=== PATIENT | female | born 1970 | race American Indian/Alaskan Native ===

== ENCOUNTER 2017-08-24 08:03 | Emergency (ER) | payer MEDICARE, OTHER ==
--- NOTE | 2017-08-24 08:56 | XRay Report ---
Chest 2 views. History: Shortness of breath. Findings: The heart is enlarged and is stable compared to a study in May 2015. A bipolar pacemaker is present. The lungs are clear. There is no pleural fluid. The pulmonary vascularity is normal. Impression: Stable cardiomegaly with no acute findings.
[2017-08-24 09:01] LABS: Basophils % (Auto) 0.7 % (0.0-1.8); Eosinophils % (Auto) 1.1 % (0.0-4.3); Hematocrit 35.6 % (30.3-42.9); Hemoglobin 12.1 gm/dl (10.1-14.3); Mean Corpuscular HGB Conc 34 % (30-34); Mean Corpuscular Hemoglobin 33 pg (28-32); Mean Corpuscular Volume 97 fl (79-97); Platelet Count 198 K/mm3 (140-440); Red Blood Count 3.69 M/mm3 (3.65-5.03); Red Cell Distribution Width 15.4 % (13.2-15.2); White Blood Count 12.3 K/mm3 (4.5-11.0)
[2017-08-24 09:32] LABS: Anion Gap 20 mmol/L; BUN/Creatinine Ratio 19; Blood Urea Nitrogen 21 mg/dL (7-17); Calcium 9.1 mg/dL (8.4-10.2); Carbon Dioxide 24 mmol/L (22-30); Chloride 102.7 mmol/L (98-107); Glucose 165 mg/dL (65-100); Potassium 3.4 mmol/L (3.6-5.0); Sodium 143 mmol/L (137-145)
[2017-08-24 12:04] VITALS: BP 128/80
--- NOTE | 2017-08-24 13:06 | Emergency Department Report ---
ED Shortness of Breath HPI - General Chief Complaint: Dyspnea/Respdistress Stated Complaint: SHORTNESS OF BREATH Time Seen by Provider: 08/24/17 12:24 Source: patient Mode of arrival: Ambulatory Limitations: No Limitations - History of Present Illness Initial Comments: Patient said over the last few days she's been feeling short of breath. The shortness of breath is worse on exertion and also when she is lying down. Patient said she is also felt chills. She also has a cough which is productive of sputum. Patient said about 2 weeks ago she was told to stop her Lasix 40 mg daily by her kidney doctor. MD Complaint: shortness of breath -: Gradual Severity: moderate Consistency: intermittent Improves With: other (patient said she just took her Lasix and she is urinating a lot more and she is a lot more comfortable) Worsens With: nothing - Related Data Home Medications Medication Instructions Recorded Confirmed Last Taken Aspirin [Aspirin BABY CHEW TAB] 1 tab PO DAILY 08/24/17 08/24/17 Unknown Carvedilol [Coreg] 25 mg PO BID 08/24/17 08/24/17 08/23/17 21:00 25 MG Hydroxyzine HCl 10 mg PO Q6H PRN 08/24/17 08/24/17 Unknown Montelukast [Singulair] 10 mg PO DAILY 08/24/17 08/24/17 08/23/17 21:00 10 MG Ranitidine HCl [Zantac 300 MG TAB] 300 mg PO DAILY 08/24/17 08/24/17 08/23/17 21 :00 300 MG Simvastatin [Zocor] 10 mg PO QHS 08/24/17 08/24/17 08/23/17 21:00 10 MG Spironolactone [Aldactone] 25 mg PO QDAY 08/24/17 08/24/17 08/23/17 21:00 25 MG Torsemide [Demadex] 20 mg PO DAILY 08/24/17 08/24/17 08/23/17 21:00 20 MG hydrALAZINE [Apresoline TAB] 25 mg PO BID 08/24/17 08/24/17 08/23/17 21:00 25 MG Previous Rx's Medication Instructions Recorded Last Taken Type ALBUTEROL Inhaler [ProAir HFA 2 puff IH QID PRN #1 inhalation 08/24/17 Unknown Rx Inhaler] Allergies Allergy/AdvReac Type Severity Reaction Status Date / Time No Known Allergies Allergy Verified 05/14/15 02:29 ED Review of Systems ROS: Stated complaint: SHORTNESS OF BREATH Other details as noted in HPI Comment: All other systems reviewed and negative ED Past Medical Hx - Past Medical History Previous Medical History?: Yes Hx Hypertension: Yes Hx Congestive Heart Failure: Yes Hx Diabetes: Yes Hx GERD: Yes Hx Asthma: Yes Additional medical history: DEFRIBILLATOR - Surgical History Past Surgical History?: Yes Hx Internal Defibrillator: Yes Additional Surgical History: DEFRIBILLATOR - Social History Smoking Status: Current Every Day Smoker Substance Use Type: None - Medications Home Medications: Home Medications Medication Instructions Recorded Confirmed Last Taken Type ALBUTEROL Inhaler [ProAir HFA 2 puff IH QID PRN #1 inhalation 08/24/17 Unknown Rx Inhaler] Aspirin [Aspirin BABY CHEW TAB] 1 tab PO DAILY 08/24/17 08/24/17 Unknown History Carvedilol [Coreg] 25 mg PO BID 08/24/17 08/24/17 08/23/17 21:00 History 25 MG Hydroxyzine HCl 10 mg PO Q6H PRN 08/24/17 08/24/17 Unknown History Montelukast [Singulair] 10 mg PO DAILY 08/24/17 08/24/17 08/23/17 21:00 History 10 MG Ranitidine HCl [Zantac 300 MG TAB] 300 mg PO DAILY 08/24/17 08/24/17 08/23/17 21 :00 History 300 MG Simvastatin [Zocor] 10 mg PO QHS 08/24/17 08/24/17 08/23/17 21:00 History 10 MG Spironolactone [Aldactone] 25 mg PO QDAY 08/24/17 08/24/17 08/23/17 21:00 History 25 MG Torsemide [Demadex] 20 mg PO DAILY 08/24/17 08/24/17 08/23/17 21:00 History 20 MG hydrALAZINE [Apresoline TAB] 25 mg PO BID 08/24/17 08/24/17 08/23/17 21:00 History 25 MG ED Physical Exam - General Limitations: No Limitations General appearance: alert, in no apparent distress - Head Head exam: Present: atraumatic, normocephalic - Eye Eye exam: Present: normal appearance - ENT ENT exam: Present: mucous membranes moist - Neck Neck exam: Present: normal inspection - Respiratory Respiratory exam: Present: normal lung sounds bilaterally. Absent: respiratory distress - Cardiovascular Cardiovascular Exam: Present: regular rate, normal rhythm. Absent: systolic murmur, diastolic murmur, rubs, gallop - GI/Abdominal GI/Abdominal exam: Present: soft, distended (uniformly distended), normal bowel sounds - Rectal Rectal exam: Present: deferred - Extremities Exam Extremities exam: Present: normal inspection, pedal edema (1+ bilateral) - Back Exam Back exam: Present: normal inspection - Neurological Exam Neurological exam: Present: alert, oriented X3 - Psychiatric Psychiatric exam: Present: normal affect, normal mood - Skin Skin exam: Present: warm, dry, intact, normal color. Absent: rash ED Course Vital Signs 08/24/17 08/24/17 08/24/17 08:14 10:08 10:24 Temperature 98.1 F Pulse Rate 91 H 131 H 84 Respiratory 18 27 H 21 Rate Blood Pressure 125/78 Blood Pressure [Left] O2 Sat by Pulse 98 97 97 Oximetry 08/24/17 08/24/17 08/24/17 10:28 10:31 10:45 Temperature Pulse Rate 85 83 Respiratory 25 H 20 Rate Blood Pressure 111/75 Blood Pressure 138/74 [Left] O2 Sat by Pulse 99 98 Oximetry 08/24/17 08/24/17 08/24/17 11:00 11:15 11:31 Temperature Pulse Rate 85 86 84 Respiratory 25 H 25 H 23 Rate Blood Pressure 134/78 134/78 134/78 Blood Pressure [Left] O2 Sat by Pulse 98 99 98 Oximetry 08/24/17 08/24/17 11:47 12:00 Temperature Pulse Rate 82 Respiratory 28 H Rate Blood Pressure 134/78 128/80 Blood Pressure [Left] O2 Sat by Pulse 96 98 Oximetry ED Medical Decision Making - Lab Data Result diagrams: 08/24/17 08:55 08/24/17 08:52 - EKG Data -: EKG Interpreted by La - EKG Data 08/24/17 13:07 EKG shows a paced rhythm at a rate of 89 - Radiology Data Radiology results: report reviewed Critical care attestation.: If time is entered above; I have spent that time in minutes in the direct care of this critically ill patient, excluding procedure time. ED Disposition Clinical Impression: Acute bronchitis, Edema Disposition: DC-01 TO HOME OR SELFCARE Is pt being admited?: No Does the pt Need Aspirin: No Condition: Stable Instructions: Acute Bronchitis (ED) Additional Instructions: restart your torsemide and talk to your kidney doctor in 3 days about the fact it as been restarted Prescriptions: ALBUTEROL Inhaler [ProAir HFA Inhaler] 2 puff IH QID PRN #1 inhalation PRN Reason: Shortness Of Breath Referrals: TAMERA BARRON MD [Primary Care Provider] - 3-5 Days Time of Disposition: 13:10 Print Language: POLISH
== END 2017-08-24 13:25 | disposition home or self-care (01) ==
LOC: ED 08:03
DX: J20.9 Acute bronchitis, unspecified (principal); R60.9 Edema, unspecified; I10 Essential (primary) hypertension; K21.9 Gastro-esophageal reflux disease without esophagitis; J45.909 Unspecified asthma, uncomplicated; F17.200 Nicotine dependence, unspecified, uncomplicated
CPT/HCPCS: 36415; 71020; 80048; 83880; 84484; 85025

== ENCOUNTER 2019-07-27 21:04 | Inpatient (IN) | payer MEDICAID, MEDICARE ==
--- NOTE | 2019-07-27 21:28 | Emergency Department Report ---
Blank Doc - Documentation Documentation: 49-year-old female that presents with epigastric pain with SOB and bilateral leg swelling. This initial assessment/diagnostic orders/clinical plan/treatment(s) is/are subject to change based on patient's health status, clinical progression and re- assessment by fellow clinical providers in the ED. Further treatment and workup at subsequent clinical providers discretion. Patient/guardians urged not to elope from the ED as their condition may be serious if not clinically assessed and managed. Initial orders include: 1- Patient sent to [facility] for further evaluation and treatment 2- EKG 3- labs 4- CXR
[2019-07-27 21:49] LABS: Basophils # (Auto) 0.1 K/mm3 (0.0-0.1); Basophils % (Auto) 1.3 % (0.0-1.8); Eosinophils # (Auto) 0.1 K/mm3 (0.0-0.4); Eosinophils % (Auto) 1.1 % (0.0-4.3); Hematocrit 40.3 % (30.3-42.9); Hemoglobin 13.4 gm/dl (10.1-14.3); Lymphocytes # (Auto) 2.4 K/mm3 (1.2-5.4); Mean Corpuscular HGB Conc 33 % (30-34); Mean Corpuscular Volume 100 fl (79-97); Monocytes # (Auto) 0.8 K/mm3 (0.0-0.8); Monocytes % (Auto) 7.2 % (0.0-7.3); Platelet Count 200 K/mm3 (140-440); Red Blood Count 4.02 M/mm3 (3.65-5.03); Red Cell Distribution Width 16.4 % (13.2-15.2)
[2019-07-27 22:07] LABS: INR 1.25 (0.87-1.13); Partial Thromboplastin Time 27.5 Sec. (24.2-36.6)
[2019-07-27 22:12] LABS: Albumin 3.8 g/dL (3.9-5); Calcium 9.5 mg/dL (8.4-10.2)
--- NOTE | 2019-07-27 22:19 | XRay Report ---
CHEST 2 VIEWS INDICATION / CLINICAL INFORMATION: Chest pain. COMPARISON: 08/24/2017 FINDINGS: SUPPORT DEVICES: Cardiac pacemaker/ICD leads appear in appropriate position. HEART / MEDIASTINUM: Stable mild cardiomegaly. LUNGS / PLEURA: No significant pulmonary or pleural abnormality. No pneumothorax. ADDITIONAL FINDINGS: No significant additional findings. IMPRESSION: 1. No acute findings. Stable mild cardiomegaly compared with prior chest x-ray on 08/24/2017. Signer Name: Golden Root MD Signed: 07/27/2019 10:15 PM Workstation Name: [id number]
[2019-07-27] MEDS ORDERED: ONDANSETRON 4 MG/2 ML INJ IV ONE (23:16)
[2019-07-27] MEDS ORDERED: FAMOTIDINE 20 MG/2 ML INJ IV ONE (23:16)
[2019-07-27] MEDS ORDERED: HYDROmorphone 1 MG/1 ML INJ IV ONE (23:16)
--- NOTE | 2019-07-28 00:21 | Cat Scan Report ---
CT abdomen pelvis wo con INDICATION: upper abd pain, n,v. TECHNIQUE: All CT scans at this location are performed using the following dose modulation technique: Automated exposure control. CONTRAST: None. COMPARISON: CT abdomen and pelvis 01/24/2013. CT ABDOMEN: Nodular scarring left lung base is slightly more prominent. The parenchymal organs are unremarkable in appearance. Negative for abdominal mass, fluid or inflamma tion. The bowel is not dilated or thickened. CT PELVIS: Negative for mass, fluid or inflammation. A normal appendix is identified. IMPRESSION: 1. Negative for obstruction or localized inflammation. 2. Nodular scarring left lung base is mildly increased, but not thought to be significant given the t jessica interval. Signer Name: Jose Perez MD Signed: 07/28/2019 12:17 AM Workstation Name: [id number]
--- NOTE | 2019-07-28 00:32 | Emergency Department Report ---
ED Abdominal Pain HPI - General Chief Complaint: Dyspnea/Respdistress Stated Complaint: RENETTA Time Seen by Provider: 07/27/19 21:25 Source: patient Mode of arrival: Ambulatory Limitations: No Limitations - History of Present Illness Initial Comments: 49-year-old female with a past medical history of obesity, CHF, COPD, diabetes, GERD, hypertension, defibrillator placement and previous presents to the hospital complaining of right upper quadrant and epigastric abdominal pain with nausea and vomiting. Pain is intermittent, worse with palpation. Symptoms have gradually worsened that she's had 5 episodes of nonbloody vomitus today. Patient was just discharged 4 days ago from [facility] after a 4 day admission. Patient states she presented with flulike symptoms including cough, chills, and fever. She received IV Lasix and echocardiogram prior to d/c. She does not know her exact d/c diagnosis. Fever has improvement but she continues to have a cough. She also states she continues to have abdominal pain. Supervisor Hanging And Trimming: Dr Sue Severity scale (0 -10): 10 - Related Data Home Medications Medication Instructions Recorded Confirmed Last Taken Aspirin [Aspirin BABY CHEW TAB] 1 tab PO DAILY 08/24/17 07/28/19 Unknown Carvedilol [Coreg] 25 mg PO BID 08/24/17 07/28/19 08/23/17 21:00 25 MG Montelukast [Singulair] 10 mg PO DAILY 08/24/17 07/28/19 08/23/17 21:00 10 MG Simvastatin [Zocor] 10 mg PO QHS 08/24/17 07/28/19 08/23/17 21:00 10 MG Spironolactone [Aldactone] 25 mg PO QDAY 08/24/17 07/28/19 08/23/17 21:00 25 MG Torsemide [Demadex] 20 mg PO DAILY 08/24/17 07/28/19 08/23/17 21:00 20 MG hydrALAZINE [Apresoline TAB] 25 mg PO BID 08/24/17 07/28/19 08/23/17 21:00 25 MG hydrOXYzine HCl [Hydroxyzine HCl] 10 mg PO Q6H PRN 08/24/17 07/28/19 Unknown raNITIdine HCl [Zantac 300 MG TAB] 300 mg PO DAILY 08/24/17 07/28/19 08/23/17 21:00 300 MG Furosemide [Lasix TAB] 40 mg PO BID 07/28/19 07/28/19 Unknown Previous Rx's Medication Instructions Recorded Last Taken Type ALBUTEROL Inhaler (OR & NICU) 2 puff IH QID PRN #1 inhalation 08/24/17 Unknown Rx [ProAir HFA Inhaler] Allergies Allergy/AdvReac Type Severity Reaction Status Date / Time No Known Allergies Allergy Verified 05/14/15 02:29 ED Review of Systems ROS: Stated complaint: RENETTA Other details as noted in HPI Comment: All other systems reviewed and negative ED Past Medical Hx - Past Medical History Previous Medical History?: Yes Hx Hypertension: Yes Hx Congestive Heart Failure: Yes Hx Diabetes: Yes Hx GERD: Yes Hx Asthma: Yes Hx COPD: Yes Additional medical history: DEFRIBILLATOR. - Surgical History Past Surgical History?: Yes Hx Internal Defibrillator: Yes Additional Surgical History: DEFRIBILLATOR - Social History Smoking Status: Former Smoker Substance Use Type: None - Medications Home Medications: Home Medications Medication Instructions Recorded Confirmed Last Taken Type ALBUTEROL Inhaler (OR & NICU) 2 puff IH QID PRN #1 inhalation 08/24/17 07/28/19 Unknown Rx [ProAir HFA Inhaler] Aspirin [Aspirin BABY CHEW TAB] 1 tab PO DAILY 08/24/17 07/28/19 Unknown History Carvedilol [Coreg] 25 mg PO BID 08/24/17 07/28/19 08/23/17 21:00 History 25 MG Montelukast [Singulair] 10 mg PO DAILY 08/24/17 07/28/19 08/23/17 21:00 History 10 MG Simvastatin [Zocor] 10 mg PO QHS 08/24/17 07/28/19 08/23/17 21:00 History 10 MG Spironolactone [Aldactone] 25 mg PO QDAY 08/24/17 07/28/19 08/23/17 21:00 History 25 MG Torsemide [Demadex] 20 mg PO DAILY 08/24/17 07/28/19 08/23/17 21:00 History 20 MG hydrALAZINE [Apresoline TAB] 25 mg PO BID 08/24/17 07/28/19 08/23/17 21:00 History 25 MG hydrOXYzine HCl [Hydroxyzine HCl] 10 mg PO Q6H PRN 08/24/17 07/28/19 Unknown History raNITIdine HCl [Zantac 300 MG TAB] 300 mg PO DAILY 08/24/17 07/28/19 08/23/17 21:00 History 300 MG Furosemide [Lasix TAB] 40 mg PO BID 07/28/19 07/28/19 Unknown History ED Physical Exam - General Limitations: No Limitations - Other Other exam information: General: No acute distress Head: Atraumatic Eyes: normal appearance ENT: Moist mucous membranes Neck: Normal appearance, no midline tenderness Chest: Clear to auscultation bilaterally CV: Regular rate and rhythm Abdomen: Soft, normal bowel sounds, epigastric, right upper quadrant, and left upper quadrant tenderness, nondistended, no rebound or guarding Back: Normal inspection Extremity: Normal inspection infection, full range of motion Neuro: Alert O x 3, no facial asymmetry, speech clear, no gross motor sensory deficit Psych: Appropriate behavior Skin: No rash ED Course Vital Signs 07/27/19 07/27/19 07/27/19 21:10 21:26 23:02 Temperature 98.8 F 98.8 F Pulse Rate 105 H 106 H Respiratory 18 18 Rate Blood Pressure 142/98 142/98 O2 Sat by Pulse 98 100 94 Oximetry 07/27/19 07/27/19 07/27/19 23:15 23:35 23:45 Temperature Pulse Rate 99 H 94 H 97 H Respiratory 13 30 H Rate Blood Pressure 119/82 126/77 108/72 O2 Sat by Pulse 96 89 96 Oximetry 07/28/19 07/28/19 07/28/19 00:00 00:15 00:30 Temperature Pulse Rate 95 H 96 H 95 H Respiratory 12 18 17 Rate Blood Pressure 108/72 107/71 107/71 O2 Sat by Pulse 84 88 94 Oximetry 07/28/19 07/28/19 07/28/19 00:46 01:00 01:16 Temperature Pulse Rate 94 H 92 H 92 H Respiratory 17 15 15 Rate Blood Pressure 115/83 115/83 129/81 O2 Sat by Pulse 100 96 94 Oximetry 07/28/19 07/28/19 01:30 01:46 Temperature Pulse Rate 90 92 H Respiratory 14 16 Rate Blood Pressure 123/84 118/83 O2 Sat by Pulse 96 96 Oximetry - Reevaluation(s) Reevaluation #1: 07/28/19 01:26 I was informed pt desatted while supine during US. This is after dilaudid 0.5mg. it was reported that pt was drowsy but arousable. sat Improved with supplemental o2. States she is currently being worked up for sleep apnea and has had a recent outpatient sleep study test. 07/28/19 02:40 Despite initial meds patient continues to have intermittent pain and nausea. No further vomiting. She was nauseated after drinking water. Surgery with plan to discharge her symptoms improve and admit if they do not. Her room air saturation is between 86 and 89%. Patient will be admitted to the hospitalist service with surgical consultation. Pt then admitted to taking her own Benadryl 25 mg - Consultations Consultation #1: 07/28/19 02:39 case d/w DR Vasquez surgeon, if pt is admitted she will consult ED Medical Decision Making - Lab Data Result diagrams: 07/27/19 21:36 07/27/19 21:36 Lab Results 07/27/19 07/27/19 07/27/19 Range/Units 21:36 21:36 21:36 WBC 11.4 H (4.5-11.0) K/mm3 RBC 4.02 (3.65-5.03) M/mm3 Hgb 13.4 (10.1-14.3) gm/dl Hct 40.3 (30.3-42.9) % MCV 100 H (79-97) fl MCH 33 H (28-32) pg MCHC 33 (30-34) % RDW 16.4 H (13.2-15.2) % Plt Count 200 (140-440) K/mm3 Lymph % (Auto) 21.0 (13.4-35.0) % [place] % (Auto) 7.2 (0.0-7.3) % Eos % (Auto) 1.1 (0.0-4.3) % Baso % (Auto) 1.3 (0.0-1.8) % Lymph # 2.4 (1.2-5.4) K/mm3 [place] # 0.8 (0.0-0.8) K/mm3 Eos # 0.1 (0.0-0.4) K/mm3 Baso # 0.1 (0.0-0.1) K/mm3 Seg Neutrophils % 69.4 (40.0-70.0) % Seg Neutrophils # 7.9 H (1.8-7.7) K/mm3 PT 15.6 H (12.2-14.9) Sec. INR 1.25 H (0.87-1.13) APTT 27.5 (24.2-36.6) Sec. Sodium 137 (137-145) mmol/L Potassium 4.7 (3.6-5.0) mmol/L Chloride 101.3 (98-107) mmol/L Carbon Dioxide 21 L (22-30) mmol/L Anion Gap 19 mmol/L BUN 38 H (7-17) mg/dL Creatinine 1.7 H (0.7-1.2) mg/dL Estimated GFR 39 ml/min BUN/Creatinine Ratio 22 % Glucose 189 H (65-100) mg/dL Calcium 9.5 (8.4-10.2) mg/dL Total Bilirubin 0.80 (0.1-1.2) mg/dL AST 16 (5-40) units/L ALT 24 (7-56) units/L Alkaline Phosphatase 79 (35-129) units/L Troponin T 0.028 (0.00-0.029) ng/mL NT-Pro-B Natriuret Pep 2468 H (0-450) pg/mL Total Protein 6.9 (6.3-8.2) g/dL Albumin 3.8 L (3.9-5) g/dL Albumin/Globulin Ratio 1.2 % Lipase (13-60) units/L 07/27/19 07/28/19 Range/Units 21:36 00:40 WBC (4.5-11.0) K/mm3 RBC (3.65-5.03) M/mm3 Hgb (10.1-14.3) gm/dl Hct (30.3-42.9) % MCV (79-97) fl MCH (28-32) pg MCHC (30-34) % RDW (13.2-15.2) % Plt Count (140-440) K/mm3 Lymph % (Auto) (13.4-35.0) % [place] % (Auto) (0.0-7.3) % Eos % (Auto) (0.0-4.3) % Baso % (Auto) (0.0-1.8) % Lymph # (1.2-5.4) K/mm3 [place] # (0.0-0.8) K/mm3 Eos # (0.0-0.4) K/mm3 Baso # (0.0-0.1) K/mm3 Seg Neutrophils % (40.0-70.0) % Seg Neutrophils # (1.8-7.7) K/mm3 PT (12.2-14.9) Sec. INR (0.87-1.13) APTT (24.2-36.6) Sec. Sodium (137-145) mmol/L Potassium (3.6-5.0) mmol/L Chloride (98-107) mmol/L Carbon Dioxide (22-30) mmol/L Anion Gap mmol/L BUN (7-17) mg/dL Creatinine (0.7-1.2) mg/dL Estimated GFR ml/min BUN/Creatinine Ratio % Glucose (65-100) mg/dL Calcium (8.4-10.2) mg/dL Total Bilirubin (0.1-1.2) mg/dL AST (5-40) units/L ALT (7-56) units/L Alkaline Phosphatase (35-129) units/L Troponin T 0.021 (0.00-0.029) ng/mL NT-Pro-B Natriuret Pep (0-450) pg/mL Total Protein (6.3-8.2) g/dL Albumin (3.9-5) g/dL Albumin/Globulin Ratio % Lipase 31 (13-60) units/L - EKG Data -: EKG Interpreted by Me (a sensed, v paced rhythm, ) Rate: normal (91) - EKG Data When compared to previous EKG there are: no significant change - Radiology Data Radiology results: report reviewed CHEST 2 VIEWS INDICATION / CLINICAL INFORMATION: Chest pain. COMPARISON: 08/24/2017 FINDINGS: SUPPORT DEVICES: Cardiac pacemaker/ICD leads appear in appropriate position. HEART / MEDIASTINUM: Stable mild cardiomegaly. LUNGS / PLEURA: No significant pulmonary or pleural abnormality. No pneumothorax. ADDITIONAL FINDINGS: No significant additional findings. IMPRESSION: 1. No acute findings. Stable mild cardiomegaly compared with prior chest x-ray on 2016. CT abdomen pelvis wo con INDICATION: upper abd pain, n,v. TECHNIQUE: All CT scans at this location are performed using the following dose modulation technique: Automated exposure control. CONTRAST: None. COMPARISON: CT abdomen and pelvis 01/24/2013. CT ABDOMEN: Nodular scarring left lung base is slightly more prominent. The parenchymal organs are unremarkable in appearance. Negative for abdominal mass, fluid or inflammation. The bowel is not dilated or thic kened. CT PELVIS: Negative for mass, fluid or inflammation. A normal appendix is identified. IMPRESSION: 1. Negative for obstruction or localized inflammation. 2. Nodular scarring left lung base is mildly increased, but not thought to be significant given the time interval. ULTRASOUND ABDOMEN, COMPLETE INDICATION: upper abd pain, ruq jesús. COMPARISON: None available. FINDINGS: Pancreas: Normal. Abdominal Aorta: Normal. IVC: Normal. Liver: Normal. Gallbladder: Multiple gallstones. Bile ducts: Normal. Common Bile Duct measures 1 mm. Right Kidney: Mild vascular calcification. Left Kidney: Normal. Spleen: Normal. Free fluid: None. Additional Findings: None. IMPRESSION: Gallstones. Negative for biliary dilatation. - Medical Decision Making plan to admit for rebecca Back with continued pain and nausea despite ED treatment. Patient also noted to be hypoxic on room air after pain medications and O2 sat in the mid to high 80s even though she is awake and speaking. Patient will be admitted to the hospitalist service for further workup and evaluation. Surgical consult ordered. cardiology consult ordered - Differential Diagnosis pancreatitis, hepatitis, biliary colic Critical Care Time: No Critical care attestation.: If time is entered above; I have spent that time in minutes in the direct care of this critically ill patient, excluding procedure time. ED Disposition Clinical Impression: Biliary colic, Intractable pain, Nausea and vomiting, CHF (congestive heart failure), Hypoxia, Obesity, AICD (automatic cardioverter/defibrillator) present Disposition: DC-09 OP ADMIT IP TO THIS HOSP Is pt being admited?: Yes Condition: Stable Time of Disposition: 02:43 (Dr Sue/hosp)
--- NOTE | 2019-07-28 01:05 | Ultrasound Report ---
ULTRASOUND ABDOMEN, COMPLETE INDICATION: upper abd pain, ruq jesús. COMPARISON: None available. FINDINGS: Pancreas: Normal. Abdominal Aorta: Normal. IVC: Normal. Liver: Normal. Gallbladder: Multiple gallstones. Bile ducts: Normal. Common Bile Duct measures 1 mm. Right Kidney: Mild vascular calcification. Left Kidney: Normal. Spleen: Normal. Free fluid: None. Additional Findings: None. IMPRESSION: Gallstones. Negative for biliary dilatation. Signer Name: Jose Perez MD Signed: 07/28/2019 1:01 AM Workstation Name: [id number]
[2019-07-28] MEDS ORDERED: ONDANSETRON 4 MG/2 ML INJ IV ONE (02:30)
[2019-07-28] MEDS ORDERED: MORPHINE 4 MG/1 ML INJ IV ONE (02:30)
[2019-07-28] MEDS ORDERED: ACETAMINOPHEN 325 MG TAB PO PRN (04:13)
[2019-07-28] MEDS ORDERED: MAGNESIUM HYDROXIDE (MOM) ORAL LIQD UDC PO PRN (04:13)
[2019-07-28] MEDS ORDERED: DEXTROSE 50% IN WATER (25GM) 50 ML SYRINGE IV PRN (04:13)
--- NOTE | 2019-07-28 04:26 | History and Physical Report ---
History of Present Illness Date of examination: 07/28/19 Date of admission: 07/28/19 Chief complaint: Right upper quadrant abdominal pain Nausea and vomiting History of present illness: 39-year-old female with known history of morbid obesity, COPD, diabetes mellitus, GERD, hypertension and history of defibrillator placement presented to the emergency room today complaining of abdominal pain and associated nausea and vomiting. Abdominal pain is said to be crampy and has been intermittent over the past few days she indicates that she was admitted at [facility] about 4 days ago when she presented with some flulike symptoms including cough, chills fever. Indicates she was treated for symptoms but she has no known diagnosis. Fever seems to have subsided but she continues to have occasional cough. Abdominal pain is said to be more in the right upper abdomen and the epigastric region. There is no no relieving or exacerbating factor. Upon arrival in the emergency room and during evaluation she was found to be hypoxic with an O2 saturation of about 89%. Work-up in the emergency room including CT of the abdomen revealed gallstones without cholecystitis. General surgeon Dr. Vasquez has been consulted for evaluation. Past History Past Medical History: COPD, diabetes, GERD, heart failure, hypertension Past Surgical History: , Other (Defibrillator in place) Social history: smoking (Is a former smoker) Family history: diabetes, hypertension Medications and Allergies Allergies Allergy/AdvReac Type Severity Reaction Status Date / Time No Known Allergies Allergy Verified 05/14/15 02:29 Home Medications Medication Instructions Recorded Confirmed Last Taken Type ALBUTEROL Inhaler (OR & NICU) 2 puff IH QID PRN #1 inhalation 08/24/17 07/28/19 Unknown Rx [ProAir HFA Inhaler] Aspirin [Aspirin BABY CHEW TAB] 1 tab PO DAILY 08/24/17 07/28/19 Unknown History Carvedilol [Coreg] 25 mg PO BID 08/24/17 07/28/19 08/23/17 21:00 History 25 MG Montelukast [Singulair] 10 mg PO DAILY 08/24/17 07/28/19 08/23/17 21:00 History 10 MG Simvastatin [Zocor] 10 mg PO QHS 08/24/17 07/28/19 08/23/17 21:00 History 10 MG Spironolactone [Aldactone] 25 mg PO QDAY 08/24/17 07/28/19 08/23/17 21:00 History 25 MG Torsemide [Demadex] 20 mg PO DAILY 08/24/17 07/28/19 08/23/17 21:00 History 20 MG hydrALAZINE [Apresoline TAB] 25 mg PO BID 08/24/17 07/28/19 08/23/17 21:00 History 25 MG hydrOXYzine HCl [Hydroxyzine HCl] 10 mg PO Q6H PRN 08/24/17 07/28/19 Unknown History raNITIdine HCl [Zantac 300 MG TAB] 300 mg PO DAILY 08/24/17 07/28/19 08/23/17 21:00 History 300 MG Furosemide [Lasix TAB] 40 mg PO BID 07/28/19 07/28/19 Unknown History Active Meds: Active Medications Acetaminophen (Tylenol) 650 mg PO Q4H PRN PRN Reason: Pain MILD(1-3)/Fever >100.5/MARCELINO Dextrose (D50w (25gm) Syringe) 50 ml IV Q30MIN PRN; Protocol PRN Reason: Hypoglycemia Insulin Human Regular (Humulin R) 0 units SUB-Q ACHS SANDRO; Protocol Magnesium Hydroxide (Milk Of Magnesia) 30 ml PO Q4H PRN PRN Reason: Constipation Morphine Sulfate (Morphine) 2 mg IV Q4H PRN PRN Reason: Pain, Moderate (4-6) Ondansetron HCl (Zofran) 4 mg IV Q8H PRN PRN Reason: Nausea And Vomiting Sodium Chloride (Sodium Chloride Flush Syringe 10 Ml) 10 ml IV BID SANDRO Sodium Chloride (Sodium Chloride Flush Syringe 10 Ml) 10 ml IV PRN PRN PRN Reason: LINE FLUSH Review of Systems Constitutional: fever, chills Respiratory: cough Gastrointestinal: abdominal pain, nausea, vomiting Exam - Constitutional Vitals: Temp Pulse Resp BP Pulse Ox 98.8 F 87 17 127/84 99 07/27/19 21:26 07/28/19 04:00 07/28/19 04:00 07/28/19 04:00 07/28/19 04:00 General appearance: Present: no acute distress, mild distress, obese - EENT Eyes: Present: PERRL, EOM intact ENT: hearing intact, clear oral mucosa, dentition normal - Neck Neck: Present: supple, normal ROM - Respiratory Respiratory effort: normal Respiratory: bilateral: CTA - Cardiovascular Rhythm: regular Heart Sounds: Present: S1 & S2 - Extremities Extremities: no ischemia, pulses intact, pulses symmetrical, Full ROM Peripheral Pulses: within normal limits - Abdominal General gastrointestinal: Present: soft, tender (Mild tenderness in the right upper quadrant), normal bowel sounds - Integumentary Integumentary: Present: clear, warm, dry - Musculoskeletal Musculoskeletal: strength equal bilaterally - Psychiatric Psychiatric: appropriate mood/affect, intact judgment & insight, cooperative - Neurologic Neurologic: CNII-XII intact, moves all extremities Results - Labs CBC & Chem 7: 07/27/19 21:36 07/27/19 21:36 Labs: Abnormal lab results 07/27/19 07/27/19 07/27/19 Range/Units 21:36 21:36 21:36 WBC 11.4 H (4.5-11.0) K/mm3 MCV 100 H (79-97) fl MCH 33 H (28-32) pg RDW 16.4 H (13.2-15.2) % Seg Neutrophils # 7.9 H (1.8-7.7) K/mm3 PT 15.6 H (12.2-14.9) Sec. INR 1.25 H (0.87-1.13) Carbon Dioxide 21 L (22-30) mmol/L BUN 38 H (7-17) mg/dL Creatinine 1.7 H (0.7-1.2) mg/dL Glucose 189 H (65-100) mg/dL NT-Pro-B Natriuret Pep 2468 H (0-450) pg/mL Albumin 3.8 L (3.9-5) g/dL Assessment and Plan - Patient Problems (1) Biliary colic Current Visit: Yes Status: Acute Plan to address problem: Will place on analgesic medication as needed. Consult has been placed to general surgery for evaluation and recommendation. (2) CHF (congestive heart failure) Current Visit: Yes Status: Acute Plan to address problem: We will continue routine home medications monitor home input and outputs and also monitor daily weights (3) Hypoxia Current Visit: Yes Status: Acute Plan to address problem: Etiology is unclear probably secondary to history of CHF ,however patient has been placed on oxygen to keep O2 saturation greater or equal to 92% (4) Nausea and vomiting Current Visit: Yes Status: Acute Plan to address problem: We will place on IV Zofran as needed (5) Diabetes mellitus Current Visit: No Status: Acute Plan to address problem: We will monitor Accu-Cheks and continue routine home medications. (6) Hypertension Current Visit: No Status: Acute Plan to address problem: Blood pressure stable will monitor vital signs closely (7) DVT prophylaxis Current Visit: Yes Status: Acute Plan to address problem: Patient placed on subcutaneous heparin. (8) Full code status Current Visit: Yes Status: Acute
[2019-07-28] MEDS: HEPARIN 5,000 UNIT/1 ML VIAL SUB-Q SCH ×3 (06:57→22:47)
[2019-07-28] MEDS ORDERED: HEPARIN 5,000 UNIT/1 ML VIAL ONE (07:01)
[2019-07-28] MEDS: INSULIN REGULAR, HUMAN 100 UNITS/1 ML SUB-Q SCH ×3 (07:48→22:47)
[2019-07-28] MEDS: ONDANSETRON 4 MG/2 ML INJ IV PRN (08:23)
[2019-07-28] MEDS ORDERED: ONDANSETRON 4 MG/2 ML INJ ONE (08:24)
--- NOTE | 2019-07-28 10:05 | Consultation ---
History of Present Illness Consult date: 07/28/19 Reason for consult: gallstones Chief complaint: abdominal pain w/ nausea - History of present illness History of present illness: 49 year old female with a several day history of RUQ pain and intractable nausea and vomiting. She was recently treated at an OSH for 'flu-like' symptoms and was discharged less than a week ago. Besides the GI complaints she also complains of SOB and cough that did not improve after her recent admission. She says last night the pain was 10/10 and is currently 3/10 with improvement in the nausea as well. She was found to have gallstones on US and denies having the diagnosis prior to this admission. Past History Past Medical History: COPD, diabetes, GERD, heart failure, hypertension Past Surgical History: , Other (Defibrillator in place) Social history: smoking (Is a former smoker) Family history: diabetes, hypertension Medications and Allergies Allergies Allergy/AdvReac Type Severity Reaction Status Date / Time No Known Allergies Allergy Verified 05/14/15 02:29 Home Medications Medication Instructions Recorded Confirmed Last Taken Type ALBUTEROL Inhaler (OR & NICU) 2 puff IH QID PRN #1 inhalation 08/24/17 07/28/19 Unknown Rx [ProAir HFA Inhaler] Aspirin [Aspirin BABY CHEW TAB] 1 tab PO DAILY 08/24/17 07/28/19 Unknown History Carvedilol [Coreg] 25 mg PO BID 08/24/17 07/28/19 08/23/17 21:00 History 25 MG Montelukast [Singulair] 10 mg PO DAILY 08/24/17 07/28/19 08/23/17 21:00 History 10 MG Simvastatin [Zocor] 10 mg PO QHS 08/24/17 07/28/19 08/23/17 21:00 History 10 MG Spironolactone [Aldactone] 25 mg PO QDAY 08/24/17 07/28/19 08/23/17 21:00 History 25 MG Torsemide [Demadex] 20 mg PO DAILY 08/24/17 07/28/19 08/23/17 21:00 History 20 MG hydrALAZINE [Apresoline TAB] 25 mg PO BID 08/24/17 07/28/19 08/23/17 21:00 History 25 MG hydrOXYzine HCl [Hydroxyzine HCl] 10 mg PO Q6H PRN 08/24/17 07/28/19 Unknown History raNITIdine HCl [Zantac 300 MG TAB] 300 mg PO DAILY 08/24/17 07/28/19 08/23/17 21:00 History 300 MG Furosemide [Lasix TAB] 40 mg PO BID 07/28/19 07/28/19 Unknown History Active Meds: Active Medications Acetaminophen (Tylenol) 650 mg PO Q4H PRN PRN Reason: Pain MILD(1-3)/Fever >100.5/MARCELINO Dextrose (D50w (25gm) Syringe) 0 ml IV Q30MIN PRN; Protocol PRN Reason: Hypoglycemia Heparin Sodium (Porcine) (Heparin) 5,000 unit SUB-Q Q8HR SANDRO Last Admin: 07/28/19 06:57 Dose: 5,000 unit Documented by: Insulin Human Regular (Humulin R) 0 units SUB-Q ACHS SANDRO; Protocol Last Admin: 07/28/19 07:48 Dose: Not Given Documented by: Magnesium Hydroxide (Milk Of Magnesia) 30 ml PO Q4H PRN PRN Reason: Constipation Morphine Sulfate (Morphine) 2 mg IV Q4H PRN PRN Reason: Pain, Moderate (4-6) Ondansetron HCl (Zofran) 4 mg IV Q8H PRN PRN Reason: Nausea And Vomiting Last Admin: 07/28/19 08:23 Dose: 4 mg Documented by: Sodium Chloride (Sodium Chloride Flush Syringe 10 Ml) 10 ml IV BID SANDRO Sodium Chloride (Sodium Chloride Flush Syringe 10 Ml) 10 ml IV PRN PRN PRN Reason: LINE FLUSH Review of Systems - Cardiovascular no chest pain - Respiratory cough, dyspnea on exertion - Gastrointestinal abdominal pain, nausea, vomiting Exam Vital Signs Temp Pulse Resp BP Pulse Ox 98.8 F 105 H 18 142/98 98 07/27/19 21:10 07/27/19 21:10 07/27/19 21:10 07/27/19 21:10 07/27/19 21:10 - General physical appearance Positive: well developed, no distress, obese - Respiratory Positive: normal expansion, clear to percussion - Extremities Extremity abnormal: edema - Abdomen Abdomen: Present: other (obese, soft, tender to palpation in the RUQ and epigastric area. no rebound or guarding) Results - Labs 07/27/19 21:36 11/17/19 21:36 Abnormal lab results 07/27/19 07/27/19 07/27/19 Range/Units 21:36 21:36 21:36 WBC 11.4 H (4.5-11.0) K/mm3 MCV 100 H (79-97) fl MCH 33 H (28-32) pg RDW 16.4 H (13.2-15.2) % Seg Neutrophils # 7.9 H (1.8-7.7) K/mm3 PT 15.6 H (12.2-14.9) Sec. INR 1.25 H (0.87-1.13) Carbon Dioxide 21 L (22-30) mmol/L BUN 38 H (7-17) mg/dL Creatinine 1.7 H (0.7-1.2) mg/dL Glucose 189 H (65-100) mg/dL NT-Pro-B Natriuret Pep 2468 H (0-450) pg/mL Albumin 3.8 L (3.9-5) g/dL Diabetes panel 07/27/19 Range/Units 21:36 Sodium 137 (137-145) mmol/L Potassium 4.7 (3.6-5.0) mmol/L Chloride 101.3 (98-107) mmol/L Carbon Dioxide 21 L (22-30) mmol/L BUN 38 H (7-17) mg/dL Creatinine 1.7 H (0.7-1.2) mg/dL Glucose 189 H (65-100) mg/dL Calcium 9.5 (8.4-10.2) mg/dL AST 16 (5-40) units/L ALT 24 (7-56) units/L Alkaline Phosphatase 79 (35-129) units/L Total Protein 6.9 (6.3-8.2) g/dL Albumin 3.8 L (3.9-5) g/dL Calcium panel 07/27/19 Range/Units 21:36 Calcium 9.5 (8.4-10.2) mg/dL Albumin 3.8 L (3.9-5) g/dL Pituitary panel 07/27/19 Range/Units 21:36 Sodium 137 (137-145) mmol/L Potassium 4.7 (3.6-5.0) mmol/L Chloride 101.3 (98-107) mmol/L Carbon Dioxide 21 L (22-30) mmol/L BUN 38 H (7-17) mg/dL Creatinine 1.7 H (0.7-1.2) mg/dL Glucose 189 H (65-100) mg/dL Calcium 9.5 (8.4-10.2) mg/dL Adrenal panel 07/27/ Range/Units 21:36 Sodium 137 (137-145) mmol/L Potassium 4.7 (3.6-5.0) mmol/L Chloride 101.3 (98-107) mmol/L Carbon Dioxide 21 L (22-30) mmol/L BUN 38 H (7-17) mg/dL Creatinine 1.7 H (0.7-1.2) mg/dL Glucose 189 H (65-100) mg/dL Calcium 9.5 (8.4-10.2) mg/dL Total Bilirubin 0.80 (0.1-1.2) mg/dL AST 16 (5-40) units/L ALT 24 (7-56) units/L Alkaline Phosphatase 79 (35-129) units/L Total Protein 6.9 (6.3-8.2) g/dL Albumin 3.8 L (3.9-5) g/dL - Imaging CT scan - abdomen: report reviewed, image reviewed CT scan - pelvis: report reviewed, image reviewed Assessment and Plan 49 year old female with a history of diabetes, renal insufficiency, COPD with symptomatic cholelithiasis. afebrile stable. - acute on chronic CHF - w/ defibrillator - hypoxemia requiring oxygen 1. at this time surgery not emergent in nature. Will require cardiology and pulmonary clearances to determine risk factor for surgery. If determined to be high risk and could benefit from optimization would continue supportive care with pain/ nausea control, avoiding high fat foods. If can be determined to be a appropriate risk for elective surgery would plan for cholecystectomy this admission if patient agrees.
--- NOTE | 2019-07-28 10:44 | Consultation ---
History of Present Illness Consult date: 07/28/19 Consult reason: congestive heart failure History of present illness: This is a 49-year old morbidly obese woman that has a dilated nonischemic ca rdiomyopathy and has a cardiac defibrillator insitu. Patient presented with multiple complaints. Patient complains of shortness of breath, coughs, fever and chills. In addition, patient complains of abdominal pain associated with nausea and vomiting. A chest x-ray reports cardiomegaly with mild interstitial edema. Of note, patient was recently admitted to [facility] with similar complaints. Cardiac workup with an echocardiogram during that hospitalization reports a 4 chamber dilation, severe pulmonary hypertension and a severely decreased left ventricular systolic function, ejection fraction 10-15%. Past History Past Medical History: COPD, diabetes, GERD, heart failure, hypertension Past Surgical History: , Other (Defibrillator in place) Social history: smoking (Is a former smoker) Family history: diabetes, hypertension Medications and Allergies Allergies Allergy/AdvReac Type Severity Reaction Status Date / Time No Known Allergies Allergy Verified 05/14/15 02:29 Home Medications Medication Instructions Recorded Confirmed Last Taken Type ALBUTEROL Inhaler (OR & NICU) 2 puff IH QID PRN #1 inhalation 08/24/17 07/28/19 Unknown Rx [ProAir HFA Inhaler] Aspirin [Aspirin BABY CHEW TAB] 1 tab PO DAILY 08/24/17 07/28/19 Unknown History Carvedilol [Coreg] 25 mg PO BID 08/24/17 07/28/19 08/23/17 21:00 History 25 MG Montelukast [Singulair] 10 mg PO DAILY 08/24/17 07/28/19 08/23/17 21:00 History 10 MG Simvastatin [Zocor] 10 mg PO QHS 08/24/17 07/28/19 08/23/17 21:00 History 10 MG Spironolactone [Aldactone] 25 mg PO QDAY 08/24/17 07/28/19 08/23/17 21:00 History 25 MG Torsemide [Demadex] 20 mg PO DAILY 08/24/17 07/28/19 08/23/17 21:00 History 20 MG hydrALAZINE [Apresoline TAB] 25 mg PO BID 08/24/17 07/28/19 08/23/17 21:00 H istory 25 MG hydrOXYzine HCl [Hydroxyzine HCl] 10 mg PO Q6H PRN 08/24/17 07/28/19 Unknown Hi story raNITIdine HCl [Zantac 300 MG TAB] 300 mg PO DAILY 08/24/17 07/28/19 08/23/17 21:00 History 300 MG Furosemide [Lasix TAB] 40 mg PO BID 07/28/19 07/28/19 Unknown History Active Meds: Active Medications Acetaminophen (Tylenol) 650 mg PO Q4H PRN PRN Reason: Pain MILD(1-3)/Fever >100.5/MARCELINO Dextrose (D50w (25gm) Syringe) 0 ml IV Q30MIN PRN; Protocol PRN Reason: Hypoglycemia Heparin Sodium (Porcine) (Heparin) 5,000 unit SUB-Q Q8HR SANDRO Last Admin: 07/28/19 06:57 Dose: 5,000 unit Documented by: Insulin Human Regular (Humulin R) 0 units SUB-Q ACHS SANDRO; Protocol Last Admin: 07/28/19 07:48 Dose: Not Given Documented by: Magnesium Hydroxide (Milk Of Magnesia) 30 ml PO Q4H PRN PRN Reason: Constipation Morphine Sulfate (Morphine) 2 mg IV Q4H PRN PRN Reason: Pain, Moderate (4-6) Ondansetron HCl (Zofran) 4 mg IV Q8H PRN PRN Reason: Nausea And Vomiting Last Admin: 07/28/19 08:23 Dose: 4 mg Documented by: Sodium Chloride (Sodium Chloride Flush Syringe 10 Ml) 10 ml IV BID [facility] Sodium Chloride (Sodium Chloride Flush Syringe 10 Ml) 10 ml IV PRN PRN PRN Reason: LINE FLUSH Physical Examination Vital Signs Temp Pulse Resp BP Pulse Ox 98.8 F 105 H 18 142/98 98 07/27/19 21:10 07/27/19 21:10 07/27/19 21:10 07/27/19 21:10 07/27/19 21:10 General appearance: no acute distress HEENT: Positive: PERRL Neck: Positive: trachea midline Cardiac: Positive: Reg Rate and Rhythm Lungs: Positive: Decreased Breath Sounds Neuro: Positive: Grossly Intact Extremities: Absent: edema Results 07/27/19 21:36 07/27/19 21:36 Cardiac Enzymes 07/27/19 Range/Units 21:36 AST 16 (5-40) units/L Coagulation 07/27/19 Range/Units 21:36 PT 15.6 H (12.2-14.9) Sec. INR 1.25 H (0.87-1.13) APTT 27.5 (24.2-36.6) Sec. CBC 07/27/19 Range/Units 21:36 WBC 11.4 H (4.5-11.0) K/mm3 RBC 4.02 (3.65-5.03) M/mm3 Hgb 13.4 (10.1-14.3) gm/dl Hct 40.3 (30.3-42.9) % Plt Count 200 (140-440) K/mm3 Lymph # 2.4 (1.2-5.4) K/mm3 Rooks # 0.8 (0.0-0.8) K/mm3 Eos # 0.1 (0.0-0.4) K/mm3 Baso # 0.1 (0.0-0.1) K/mm3 Comprehensive Metabolic Panel 07/27/19 Range/Units 21:36 Sodium 137 (137-145) mmol/L Potassium 4.7 (3.6-5.0) mmol/L Chloride 101.3 (98-107) mmol/L Carbon Dioxide 21 L (22-30) mmol/L BUN 38 H (7-17) mg/dL Creatinine 1.7 H (0.7-1.2) mg/dL Glucose 189 H (65-100) mg/dL Calcium 9.5 (8.4-10.2) mg/dL AST 16 (5-40) units/L ALT 24 (7-56) units/L Alkaline Phosphatase 79 (35-129) units/L Total Protein 6.9 (6.3-8.2) g/dL Albumin 3.8 L (3.9-5) g/dL Assessment and Plan - Patient Problems (1) CHF (congestive heart failure) Current Visit: Yes Status: Acute
--- NOTE | 2019-07-28 12:21 | Consultation ---
History of Present Illness Consult date: 07/28/19 Requesting physician: EPDRO MCCARTNEY Reason for consult: COPD, other (surgical risk stratification) History of present illness: 49 y/o , obese female admitted with abdominal pain. Per chart, needs nonemergent cholecystectomy. Pulmonary has been asked for risk assessment. Per patient she was diagnosed with COPD by [facility] heart. She has never had breathing tests but sounds like recently she had an overnight pulse ox done. She also has never been tested for THANG. Per patient still smokes and has smoked for the last 30 years. She has never been hospitalized for breathing. 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 Currently on oxygen in bed. She does endorse occasional cough with wheeze. Past History Past Medical History: COPD, diabetes, GERD, heart failure, hypertension Past Surgical History: , Other (Defibrillator in place) Social history: smoking (Is a former smoker) Family history: diabetes, hypertension Medications and Allergies Allergies Allergy/AdvReac Type Severity Reaction Status Date / Time No Known Allergies Allergy Verified 05/14/15 02:29 Home Medications Medication Instructions Recorded Confirmed Last Taken Type ALBUTEROL Inhaler (OR & NICU) 2 puff IH QID PRN #1 inhalation 08/24/17 07/28/19 Unknown Rx [ProAir HFA Inhaler] Aspirin [Aspirin BABY CHEW TAB] 1 tab PO DAILY 08/24/17 07/28/19 Unknown History Carvedilol [Coreg] 25 mg PO BID 08/24/17 07/28/19 08/23/17 21:00 History 25 MG Montelukast [Singulair] 10 mg PO DAILY 08/24/17 07/28/19 08/23/17 21:00 History 10 MG Simvastatin [Zocor] 10 mg PO QHS 08/24/17 07/28/19 08/23/17 21:00 History 10 MG Spironolactone [Aldactone] 25 mg PO QDAY 08/24/17 07/28/19 08/23/17 21:00 History 25 MG Torsemide [Demadex] 20 mg PO DAILY 08/24/17 07/28/19 08/23/17 21:00 History 20 MG hydrALAZINE [Apresoline TAB] 25 mg PO BID 08/24/17 07/28/19 08/23/17 21:00 History 25 MG hydrOXYzine HCl [Hydroxyzine HCl] 10 mg PO Q6H PRN 08/24/17 07/28/19 Unknown History raNITIdine HCl [Zantac 300 MG TAB] 300 mg PO DAILY 08/24/17 07/28/19 08/23/17 21:00 History 300 MG Furosemide [Lasix TAB] 40 mg PO BID 07/28/19 07/28/19 Unknown History Active Meds: Active Medications Acetaminophen (Tylenol) 650 mg PO Q4H PRN PRN Reason: Pain MILD(1-3)/Fever >100.5/MARCELINO Carvedilol (Coreg) 3.125 mg PO BID [facility] Dextrose (D50w (25gm) Syringe) 0 ml IV Q30MIN PRN; Protocol PRN Reason: Hypoglycemia Furosemide (Lasix) 40 mg IV 0600,1800 [facility] Heparin Sodium (Porcine) (Heparin) 5,000 unit SUB-Q Q8HR [facility] Last Admin: 07/28/19 06:57 Dose: 5,000 unit Documented by: Hydralazine HCl (Apresoline) 25 mg PO Q8HR [facility] Milrinone Lactate/Dextrose (Milrinone-D5w 20 Mg/100 Ml) 20 mg in 100 mls @ 9.12 mls/hr IV TITR SANDRO Stop: 07/31/19 12:59 Insulin Human Regular (Humulin R) 0 units SUB-Q ACHS [facility]; Protocol Last Admin: 07/28/19 07:48 Dose: Not Given Documented by: Isosorbide Dinitrate (Isordil Titradose) 10 mg PO Q8HR [facility] Magnesium Hydroxide (Milk Of Magnesia) 30 ml PO Q4H PRN PRN Reason: Constipation Morphine Sulfate (Morphine) 2 mg IV Q4H PRN PRN Reason: Pain, Moderate (4-6) Ondansetron HCl (Zofran) 4 mg IV Q8H PRN PRN Reason: Nausea And Vomiting Last Admin: 07/28/19 08:23 Dose: 4 mg Documented by: Sodium Chloride (Sodium Chloride Flush Syringe 10 Ml) 10 ml IV BID [facility] Sodium Chloride (Sodium Chloride Flush Syringe 10 Ml) 10 ml IV PRN PRN PRN Reason: LINE FLUSH Spironolactone (Aldactone) 12.5 mg PO QDAY [facility] Review of Systems All systems: negative Physical Examination Vital signs: Vital Signs Temp Pulse Resp BP Pulse Ox 98.8 F 105 H 18 142/98 98 07/27/19 21:10 07/27/19 21:10 07/27/19 21:10 07/27/19 21:10 07/27/19 21:10 General appearance: no acute distress, alert, other (obese) Eyes: non-icteric ENT: oropharynx moist Neck: supple, no JVD Effort: normal Ascultation: Bilateral: clear, diminished breath sounds Percussion: Bilateral: not dull Tactile fremitus: Bilateral: normal Cardiovascular: regular rate and rhythm Extremities: no edema, pink and warm, pulses normal Results - Laboratory Findings CBC and BMP: 07/27/19 21:36 07/27/19 21:36 PT/INR, D-dimer PT 15.6 Sec. (12.2-14.9) H 07/27/19 21:36 INR 1.25 (0.87-1.13) H 07/27/19 21:36 Abnormal lab findings: Abnormal Labs 07/27/19 07/27/19 07/27/19 21:36 21:36 21:36 WBC 11.4 H MCV 100 H MCH 33 H RDW 16.4 H Seg Neutrophils # 7.9 H PT 15.6 H INR 1.25 H Carbon Dioxide 21 L BUN 38 H Creatinine 1.7 H Glucose 189 H NT-Pro-B Natriuret Pep 2468 H Albumin 3.8 L - Diagnostic Findings Chest x-ray: image reviewed (cardiomegaly but what appears to be normal lung dietrich.) Assessment and Plan 49 y/o, obese female smoker admitted with abdominal pain in need of cholecystectomy. 1. Limited history to work with. Patient has not been hospitalized for breathing. She is currently not in any kind of respiratory distress or being treated for the former. We did discuss the importance of smoking cessation. With lack of objective data, difficult to comment, especially in regards to COPD. The patient's ARISCAT score is 15 which is low risk of in-hospital post- op pulmonary complications. If the benefits outweigh the risk, then should proceed with surgery. Patient will need to follow up with us in our office for official screening for COPD and THANG. Concern for central sleep apnea given CAD. Post op would have PPV ready incase patient remains extremely groggy from anesthesia as she could be at risk for hypercapnea. Will continue to follow along with you. Thank you for this consult.
[2019-07-28] MEDS: MILRINONE-D5W 20 MG/100 ML 20 MG/100 ML BAG IV SCH ×2 (15:01→23:11)
[2019-07-28] MEDS: hydrALAZINE 25 MG TAB PO SCH ×2 (15:01→22:48)
--- NOTE | 2019-07-28 17:36 | Event Note ---
Date: 07/28/19 Patient seen and examined, still with mild shortness of breath but otherwise clinically stable, Discussed with surgeon, will obtain Cardiology, and pulmonary consult.
[2019-07-28] MEDS: ISOSORBIDE DINITRATE 10 MG TAB PO SCH ×2 (20:37→22:49)
[2019-07-28] MEDS: FUROSEMIDE 40 MG/4 ML INJ IV SCH (20:37)
[2019-07-28] MEDS: carvediloL 3.125 MG TAB PO SCH (22:48)
[2019-07-29] MEDS: HEPARIN 5,000 UNIT/1 ML VIAL SUB-Q SCH ×3 (05:58→22:19)
[2019-07-29] MEDS: hydrALAZINE 25 MG TAB PO SCH ×3 (06:01→23:14)
[2019-07-29] MEDS: FUROSEMIDE 40 MG/4 ML INJ IV SCH ×2 (06:02→17:38)
[2019-07-29] MEDS: ISOSORBIDE DINITRATE 10 MG TAB PO SCH ×3 (06:02→22:25)
[2019-07-29 07:40] LABS: INR 1.22 (0.87-1.13); Partial Thromboplastin Time 29.5 Sec. (24.2-36.6)
[2019-07-29 07:51] LABS: Basophils # (Auto) 0.1 K/mm3 (0.0-0.1); Basophils % (Auto) 0.7 % (0.0-1.8); Calcium 9.1 mg/dL (8.4-10.2); Eosinophils # (Auto) 0.2 K/mm3 (0.0-0.4); Hemoglobin 11.5 gm/dl (10.1-14.3); Lymphocytes # (Auto) 1.2 K/mm3 (1.2-5.4); Lymphocytes % (Auto) 11.3 % (13.4-35.0); Mean Corpuscular HGB Conc 33 % (30-34); Mean Corpuscular Volume 102 fl (79-97); Monocytes # (Auto) 0.9 K/mm3 (0.0-0.8); Monocytes % (Auto) 8.6 % (0.0-7.3); Platelet Count 186 K/mm3 (140-440); Red Blood Count 3.45 M/mm3 (3.65-5.03); Red Cell Distribution Width 16.3 % (13.2-15.2)
[2019-07-29] MEDS: SPIRONOLACTONE 25 MG TAB PO SCH (09:43)
[2019-07-29] MEDS: MILRINONE-D5W 20 MG/100 ML 20 MG/100 ML BAG IV SCH (09:43)
[2019-07-29] MEDS: carvediloL 3.125 MG TAB PO SCH ×2 (09:43→22:18)
--- NOTE | 2019-07-29 09:45 | Progress Note ---
Assessment and Plan Chronic systolic heart failure Cholelithiasis Dilated nonischemic cardiomyopathy left ventricular ejection fraction on echocardiogram was 10-15% at [facility] 2 weeks ago . Cardiac defibrillator in situ Noncompliant with medical therapy Obese Hypertension Recommendations: Daily weight. Fluid /sodium restriction. Continue medical therapy for chronic systolic heart failure including a trial of intravenous milrinone for heart failure exacerbation. Subjective Date of service: 07/29/19 Interval history: IV milrinone continues. Patient reports she is diuresing well. Objective Vital Signs Temp Pulse Pulse Resp BP Pulse Ox 07/29/19 08:29 95 H 07/29/19 07:47 98.3 F 95 H 18 104/64 97 07/29/19 06:02 96 H 99/58 07/29/19 06:01 96 H 99/58 07/29/19 04:43 98.4 F 07/29/19 04:41 96 H 18 99/58 96 07/28/19 23:20 98.4 F 07/28/19 23:19 97 H 18 99/60 93 07/28/19 22:49 98 H 94/56 07/28/19 22:48 98 H 94/56 07/28/19 22:05 98 H 18 100 07/28/19 20:45 98.4 F 07/28/19 20:42 98 H 20 94/56 100 07/28/19 19:33 99 H 07/28/19 15:55 98.2 F 18 100/63 07/28/19 09:55 90 118/80 98 - Physical Examination General: No Apparent Distress HEENT: Positive: PERRL Neck: Positive: trachea midline Cardiac: Positive: Other (paced) Lungs: Positive: Decreased Breath Sounds Neuro: Positive: Grossly Intact Extremities: Absent: edema - Labs and Meds Coagulation 07/29/19 Range/Units 06:43 PT 15.3 H (12.2-14.9) Sec. INR 1.22 H (0.87-1.13) APTT 29.5 (24.2-36.6) Sec. CBC 07/29/19 Range/Units 06:43 WBC 10.2 (4.5-11.0) K/mm3 RBC 3.45 L (3.65-5.03) M/mm3 Hgb 11.5 (10.1-14.3) gm/dl Hct 35.0 (30.3-42.9) % Plt Count 186 (140-440) K/mm3 Lymph # 1.2 (1.2-5.4) K/mm3 Love # 0.9 H (0.0-0.8) K/mm3 Eos # 0.2 (0.0-0.4) K/mm3 Baso # 0.1 (0.0-0.1) K/mm3 Comprehensive Metabolic Panel 07/29/19 Range/Units 06:43 Sodium 134 L (137-145) mmol/L Potassium 4.3 (3.6-5.0) mmol/L Chloride 98.7 (98-107) mmol/L Carbon Dioxide 22 (22-30) mmol/L BUN 40 H (7-17) mg/dL Creatinine 1.4 H (0.7-1.2) mg/dL Glucose 193 H (65-100) mg/dL Calcium 9.1 (8.4-10.2) mg/dL
[2019-07-29] MEDS: INSULIN REGULAR, HUMAN 100 UNITS/1 ML SUB-Q SCH ×4 (09:56→23:07)
--- NOTE | 2019-07-29 11:36 | Progress Note ---
Assessment and Plan 49 y/o, obese female smoker admitted with abdominal pain in need of cholecystectomy. No new recommendations for today. Same recs as below regarding surgical risk. 1. Limited history to work with. Patient has not been hospitalized for b reathing. She is currently not in any kind of respiratory distress or being treated for the former. We did discuss the importance of smoking cessation. With lack of objective data, difficult to comment, especially in regards to COPD. The patient's ARISCAT score is 15 which is low risk of in-hospital post- op pulmonary complications. If the benefits outweigh the risk, then should proceed with surgery. Patient will need to follow up with us in our office for official screening for COPD and THANG. Concern for central sleep apnea given CAD. Post op would have PPV ready incase patient remains extremely groggy from anesthesia as she could be at risk for hypercapnea. Will continue to follow a long with you. Thank you for this consult. Subjective Date of service: 07/29/19 Interval history: No acute events. On Milrinone now. Objective Vital Signs - 12hr 07/29/19 07/29/19 07/29/19 04:41 04:43 06:01 Temperature 98.4 F Pulse Rate 96 H 96 H Respiratory 18 Rate Blood Pressure 99/58 99/58 O2 Sat by Pulse 96 Oximetry 07/29/19 07/29/19 07/29/19 06:02 07:47 08:29 Temperature 98.3 F Pulse Rate 96 H 95 H 95 H Respiratory 18 Rate Blood Pressure 99/58 104/64 O2 Sat by Pulse 97 Oximetry 07/29/19 11:28 Temperature 98.7 F Pulse Rate 97 H Respiratory 18 Rate Blood Pressure 99/69 O2 Sat by Pulse 89 Oximetry Constitutional: no acute distress, alert, other (obese) Eyes: non-icteric ENT: oropharynx moist Neck: supple, no JVD Effort: normal Ascultation: Bilateral: clear, diminished breath sounds Percussion: Bilateral: not dull Tactile fremitus: Bilateral: normal Cardiovascular: regular rate and rhythm Extremities: no edema, pink and warm, pulses normal CBC and BMP: 07/29/19 06:43 07/30/19 08:49 ABG, PT/INR, D-dimer: PT/INR, D-dimer PT 15.3 Sec. (12.2-14.9) H 07/29/19 06:43 INR 1.22 (0.87-1.13) H 07/29/19 06:43 Abnormal lab findings: Abnormal Labs 07/27/19 07/27/19 07/27/19 21:36 21:36 21:36 WBC 11.4 H RBC MCV 100 H MCH 33 H RDW 16.4 H Lymph % (Auto) [place] % (Auto) [place] # Seg Neutrophils % Seg Neutrophils # 7.9 H PT 15.6 H INR 1.25 H Sodium Carbon Dioxide 21 L BUN 38 H Creatinine 1.7 H Glucose 189 H POC Glucose NT-Pro-B Natriuret Pep 2468 H Albumin 3.8 L 07/28/19 07/29/19 07/29/19 16:02 06:43 06:43 WBC RBC 3.45 L MCV 102 H MCH 33 H RDW 16.3 H Lymph % (Auto) 11.3 L [place] % (Auto) 8.6 H Davidson # 0.9 H Seg Neutrophils % 77.4 H Seg Neutrophils # 7.9 H PT 15.3 H INR 1.22 H Sodium Carbon Dioxide BUN Creatinine Glucose POC Glucose 315 H NT-Pro-B Natriuret Pep Albumin 07/29/19 06:43 WBC RBC MCV MCH RDW Lymph % (Auto) [place] % (Auto) [place] # Seg Neutrophils % Seg Neutrophils # PT INR Sodium 134 L Carbon Dioxide BUN 40 H Creatinine 1.4 H Glucose 193 H POC Glucose NT-Pro-B Natriuret Pep Albumin
--- NOTE | 2019-07-29 12:21 | Progress Note ---
Assessment and Plan Assessment and plan: Biliary colic, cholelithiasis Will place on analgesic medication as needed. Patient evaluated by Gen surgeon Acute on chronic systolic CHF We will continue routine home medications monitor home input and outputs and also monitor daily weights Acute resp failure due to CHF exacerbation Supplemental Oxygen Nausea and vomiting We will place on IV Zofran as needed Diabetes mellitus We will monitor Accu-Cheks and continue routine home medications. Hypertension Blood pressure stable will monitor vital signs closely DVT prophylaxis Patient placed on subcutaneous heparin. Full code status History Interval history: Abdominal pain shortness of breath No fever Hospitalist Physical - Physical exam Narrative exam: Gen: Not in acute distress, lying in bed, morbidly obese HEENT: Normocephalic, atraumatic Neck: supple, no JVD Heart: S1 and S2 reg, no murmurs, rubs or gallop Lungs: Clear to auscultation bilaterally, Abd: soft, tender RUQ, non distended, normal BS, Ext: No edema, no clubbing, no cyanosis Neuro: Awake, alert, oriented X 3, no focal neurological signs - Constitutional Vitals: Temp Pulse Resp BP Pulse Ox 98.7 F 97 H 18 99/69 89 07/29/19 11:28 07/29/19 11:28 07/29/19 11:28 07/29/19 11:28 07/29/19 11:28 General appearance: Present: no acute distress Results - Labs CBC & Chem 7: 07/29/19 06:43 07/29/19 06:43 Labs: Laboratory Last Values WBC 10.2 K/mm3 (4.5-11.0) 07/29/19 06:43 RBC 3.45 M/mm3 (3.65-5.03) L 07/29/19 06:43 Hgb 11.5 gm/dl (10.1-14.3) 07/29/19 06:43 Hct 35.0 % (30.3-42.9) 07/29/19 06:43 MCV 102 fl (79-97) H 07/29/19 06:43 MCH 33 pg (28-32) H 07/29/19 06:43 MCHC 33 % (30-34) 07/29/19 06:43 RDW 16.3 % (13.2-15.2) H 07/29/19 06:43 Plt Count 186 K/mm3 (140-440) 07/29/19 06:43 Lymph % (Auto) 11.3 % (13.4-35.0) L 07/29/19 06:43 [place] % (Auto) 8.6 % (0.0-7.3) H 07/29/19 06:43 Eos % (Auto) 2.0 % (0.0-4.3) 07/29/19 06:43 Baso % (Auto) 0.7 % (0.0-1.8) 07/29/19 06:43 Lymph # 1.2 K/mm3 (1.2-5.4) 07/29/19 06:43 [place] # 0.9 K/mm3 (0.0-0.8) H 07/29/19 06:43 Eos # 0.2 K/mm3 (0.0-0.4) 07/29/19 06:43 Baso # 0.1 K/mm3 (0.0-0.1) 07/29/19 06:43 Seg Neutrophils % 77.4 % (40.0-70.0) H 07/29/19 06:43 Seg Neutrophils # 7.9 K/mm3 (1.8-7.7) H 07/29/19 06:43 PT 15.3 Sec. (12.2-14.9) H 07/29/19 06:43 INR 1.22 (0.87-1.13) H 07/29/19 06:43 APTT 29.5 Sec. (24.2-36.6) 07/29/19 06:43 Sodium 134 mmol/L (137-145) L 07/29/19 06:43 Potassium 4.3 mmol/L (3.6-5.0) 07/29/19 06:43 Chloride 98.7 mmol/L (98-107) 07/29/19 06:43 Carbon Dioxide 22 mmol/L (22-30) 07/29/19 06:43 Anion Gap 18 mmol/L 07/29/19 06:43 BUN 40 mg/dL (7-17) H 07/29/19 06:43 Creatinine 1.4 mg/dL (0.7-1.2) H 07/29/19 06:43 Estimated GFR 48 ml/min 07/29/19 06:43 BUN/Creatinine Ratio 29 % 07/29/19 06:43 Glucose 193 mg/dL (65-100) H 07/29/19 06:43 POC Glucose 211 (70-105) H 07/29/19 11:35 Calcium 9.1 mg/dL (8.4-10.2) 07/29/19 06:43 Total Bilirubin 0.80 mg/dL (0.1-1.2) 07/27/19 21:36 AST 16 units/L (5-40) 07/27/19 21:36 ALT 24 units/L (7-56) 07/27/19 21:36 Alkaline Phosphatase 79 units/L (35-129) 07/27/19 21:36 Troponin T 0.021 ng/mL (0.00-0.029) 07/28/19 00:40 NT-Pro-B Natriuret Pep 2468 pg/mL (0-450) H 07/27/19 21:36 Total Protein 6.9 g/dL (6.3-8.2) 07/27/19 21:36 Albumin 3.8 g/dL (3.9-5) L 07/27/19 21:36 Albumin/Globulin Ratio 1.2 % 07/27/19 21:36 Lipase 31 units/L (13-60) 07/27/19 21:36 Active Medications - Current Medications Current Medications: Generic Name Dose Route Start Last Admin Trade Name Freq PRN Reason Stop Dose Admin Acetaminophen 650 mg 07/28/19 04:13 Tylenol PO Q4H PRN Pain MILD(1-3)/Fever >100.5/MARCELINO Carvedilol 3.125 mg 07/28/19 22:00 07/29/19 09:43 Coreg PO 3.125 mg BID SANDRO Administration Dextrose 0 ml 07/28/19 04:13 D50w (25gm) Syringe IV Q30MIN PRN Hypoglycemia Protocol Furosemide 40 mg 07/28/19 18:00 07/29/19 06:02 Lasix IV Not Given 0600,1800 SANDRO Heparin Sodium (Porcine) 5,000 unit 07/28/19 06:00 07/29/19 05:58 Heparin SUB-Q 5,000 unit Q8HR SANDRO Administration Hydralazine HCl 25 mg 07/28/19 14:00 07/29/19 06:01 Apresoline PO Not Given Q8HR [facility] Milrinone Lactate/Dextrose 20 mg in 100 mls @ 9.12 mls/hr 07/28/19 13:00 07/29/19 09:43 Milrinone-D5w 20 Mg/100 Ml IV 07/31/19 12:59 0.25 mcg/kg/min TITR SANDRO 9.12 mls/hr Administration 0.25 MCG/KG/MIN Insulin Human Regular 0 units 07/28/19 07:30 07/29/19 12:16 Humulin R SUB-Q 3 units ACHS [facility] Administration Protocol Isosorbide Dinitrate 10 mg 07/28/19 14:00 07/29/19 06:02 Isordil Titradose PO Not Given Q8HR [facility] Magnesium Hydroxide 30 ml 07/28/19 04:13 Milk Of Magnesia PO Q4H PRN Constipation Morphine Sulfate 2 mg 07/28/19 04:13 Morphine IV Q4H PRN Pain, Moderate (4-6) Nicotine 21 mg 07/29/19 13:00 Habitrol TD QDAY [facility] Ondansetron HCl 4 mg 07/28/19 04:13 07/28/19 08:23 Zofran IV 4 mg Q8H PRN Administration Nausea And Vomiting Sodium Chloride 10 ml 07/28/19 10:00 07/29/19 10:16 Sodium Chloride Flush Syringe 10 Ml IV 10 ml BID SANDRO Administration Sodium Chloride 10 ml 07/28/19 04:13 Sodium Chloride Flush Syringe 10 Ml IV PRN PRN LINE FLUSH Spironolactone 12.5 mg 07/29/19 10:00 07/29/19 09:43 Aldactone PO 12.5 mg QDAY [facility] Administration Nutrition/Malnutrition Assess - Dietary Evaluation Nutrition/Malnutrition Findings: Nutrition Notes Start: 07/28/19 13:20 Freq: Status: Active Protocol: Document 07/28/19 13:20 [place] (Rec: 07/28/19 13:35 OH [id number]) Nutrition Notes Need for Assessment generated from: MD Order Initial or Follow up Assessment Current Diagnosis Diabetes,Hypertension Other Pertinent Diagnosis CHF; GALLSTONES; BILIARY COLIC ; OBESITY Current Diet CARDIAC/CONSISTENT CHO Labs/Tests BUN 38 CR 1.7 ALB 3.8 Pertinent Medications HEPARIN LASIX HUMULIN R Height 5 ft 4 in Weight 121.6 kg [place] Body Weight (kg) 54.54 BMI 46.0 Intake Prior to Admission Poor Weight Status Morbidly Obese Subjective/Other Information MD CONSULT. Pt. sitting up in the bed. Pt. verbalized she had a f/u appointment w/PCP x2 weeks ago. Pt. indicates her appetite has steadily decreased since then. Pt. reports she has joined a gym but experienced SOB. Pt. eating out 3-5x/wk at [employer] etc. Pt. states she is consuming vegetables/salads but also fried foods quite often. MD did come in and discuss w/pt the importance of monitoring diet closer and limiting processed/packaged/eating out/ fried foods. Per pt she hasn't gone to a DM class per se but learned from her mother as she was a diabetic. Percent of energy/protein needs met: 75/75% Burn Absent Trauma Absent GI Symptoms None Food Allergy No Current % PO Fair (50-74%) Minimum of two criteria No physical signs of malnutrition #1 Nutrition Diagnosis Food and nutrition-related knowledge deficit Etiology inadequate DM education As Evidenced by Signs and Symptoms poor understanding of CHO types/maintaining BS wnl Is patient on ventilator? No Is Patient Ambulatory and/or Out of Bed Yes REE-([place]-St. Jeor-ambulatory/OOB) [ 2373.800 NUTR.MSJOOB] Kcal/Kg value to use for calculation 15 Approximate Energy Requirements Using 1824 kcal/Kg Calculation Used for Recommendations Kcal/kg Additional Notes PRO: .8-1.0 g/kg 44-55 g/ day FLUID: 1 ml/kcal Nutrition Intervention Change Diet Order: cont cardiac/consistent CHO Teaching Recipient Patient Learning Readiness Fair Teaching Methods Discussion,Demonstration, Handout Response to Teaching Verbalize understanding Education Handouts Provided Pt. educated on need to reduce fatty food consumption. Discussed w/pt fruit/vegetable /reduced na intake to benefit senior living health. Provided handout listing low na choices and encouraging nutrient dense foods. Enc pt to limit eating out/fried foods/ packaged items. Discussed hidden na foods. Rev high CHO food choices such as fruit. Educ pt on combining fruit ( those w/skin) in addition to PRO/FAT to better control blood sugar levels. Pt. verbalized understanding. Sugg choosing baked/grilled/ broiled options and increasing consumption of fish/bloom/ vegetarian PRO sources. Enc pt to be as active as possible to assist in improvement in control of DM and overall health. Barriers to Learning Motivation,Age related, Financial,Environmental,Social Revisit per MD consult or patient Sign Off request:
--- NOTE | 2019-07-29 12:37 | Progress Note ---
Assessment and Plan symptomatic cholelithiasis, afebrile, stable with acute on chronic CHF. Continue treatment per cardiology recommendations. Pt is a high risk surgical candidate with CHF and low EF. Urgent/emergent surgery is not indicated at this time. Would like to continue supportive management with nausea and pain control, avoid aggravating factors such as fatty foods. will start trial of actigal. If showing signs of clinical decline due to worsening cholecystitis, surgery will be more clinically warranted given her other serious health concerns. If her cardiac status optimized can also schedule electively. will continue to follow. Subjective Date of service: 07/29/19 Patient Reports: Positive: tolerating liquids well (pt says she was having less abdominal pain but is starting to have some abdominal pain this morning. less nausea, no vomiting). Negative: vomiting Objective Vital Signs - 12hr 07/29/19 07/29/19 07/29/19 04:41 04:43 06:01 Temperature 98.4 F Pulse Rate 96 H 96 H Respiratory 18 Rate Blood Pressure 99/58 99/58 O2 Sat by Pulse 96 Oximetry 07/29/19 07/29/19 07/29/19 06:02 07:47 08:29 Temperature 98.3 F Pulse Rate 96 H 95 H 95 H Respiratory 18 Rate Blood Pressure 99/58 104/64 O2 Sat by Pulse 97 Oximetry 07/29/19 11:28 Temperature 98.7 F Pulse Rate 97 H Respiratory 18 Rate Blood Pressure 99/69 O2 Sat by Pulse 89 Oximetry - General physical appearance well developed, well nourished, no distress, obese - Respiratory normal expansion, normal respiratory effort - Abdomen soft, other (obese, tender to deep palpation in the RUQ and epigastric area) - Labs 07/29/19 06:43 07/29/19 06:43 Diabetes panel 07/29/19 Range/Units 06:43 Sodium 134 L (137-145) mmol/L Potassium 4.3 (3.6-5.0) mmol/L Chloride 98.7 (98-107) mmol/L Carbon Dioxide 22 (22-30) mmol/L BUN 40 H (7-17) mg/dL Creatinine 1.4 H (0.7-1.2) mg/dL Glucose 193 H (65-100) mg/dL Calcium 9.1 (8.4-10.2) mg/dL Calcium panel 07/29/19 Range/Units 06:43 Calcium 9.1 (8.4-10.2) mg/dL Pituitary panel 07/29/19 Range/Units 06:43 Sodium 134 L (137-145) mmol/L Potassium 4.3 (3.6-5.0) mmol/L Chloride 98.7 (98-107) mmol/L Carbon Dioxide 22 (22-30) mmol/L BUN 40 H (7-17) mg/dL Creatinine 1.4 H (0.7-1.2) mg/dL Glucose 193 H (65-100) mg/dL Calcium 9.1 (8.4-10.2) mg/dL Adrenal panel 07/29/19 Range/Units 06:43 Sodium 134 L (137-145) mmol/L Potassium 4.3 (3.6-5.0) mmol/L Chloride 98.7 (98-107) mmol/L Carbon Dioxide 22 (22-30) mmol/L BUN 40 H (7-17) mg/dL Creatinine 1.4 H (0.7-1.2) mg/dL Glucose 193 H (65-100) mg/dL Calcium 9.1 (8.4-10.2) mg/dL
[2019-07-29] MEDS: NICOTINE 21 MG/24 HR PATCH TD SCH (14:15)
[2019-07-29] MEDS: URSODIOL 250 MG TAB PO SCH (17:38)
[2019-07-30] MEDS: MILRINONE-D5W 20 MG/100 ML 20 MG/100 ML BAG IV SCH ×2 (04:19→15:21)
[2019-07-30] MEDS: HEPARIN 5,000 UNIT/1 ML VIAL SUB-Q SCH ×3 (07:12→21:38)
[2019-07-30] MEDS: carvediloL 3.125 MG TAB PO SCH ×3 (08:46→21:38)
[2019-07-30] MEDS: INSULIN REGULAR, HUMAN 100 UNITS/1 ML SUB-Q SCH ×3 (08:47→21:40)
[2019-07-30] MEDS: URSODIOL 250 MG TAB PO SCH ×3 (10:17→18:39)
[2019-07-30] MEDS: SPIRONOLACTONE 25 MG TAB PO SCH (10:18)
[2019-07-30] MEDS: NICOTINE 21 MG/24 HR PATCH TD SCH (10:18)
[2019-07-30 10:23] LABS: Calcium 8.8 mg/dL (8.4-10.2)
--- NOTE | 2019-07-30 10:33 | Progress Note ---
Assessment and Plan Assessment and plan: Biliary colic, cholelithiasis Will place on analgesic medication as needed. Patient evaluated by Gen surgeon No urgent surgery planned. Discussed with Surgeon Surgery possibly as out patient when stable cardac patrick Acute on chronic systolic CHF Started on Milrinone drip till tomorrow 07/31 as per Cardiology Acute resp failure due to CHF exacerbation Supplemental Oxygen Nausea and vomiting On IV Zofran as needed Diabetes mellitus We will monitor Accu-Cheks and continue routine home medications. Hypertension Blood pressure stable will monitor vital signs closely DVT prophylaxis Patient placed on subcutaneous heparin. Full code status History Interval history: Less Abdominal pain shortness of breath No fever Hospitalist Physical - Physical exam Narrative exam: Gen: Not in acute distress, lying in bed, morbidly obese HEENT: Normocephalic, atraumatic Neck: supple, no JVD Heart: S1 and S2 reg, no murmurs, rubs or gallop Lungs: Bilateral basal crackles, Abd: soft, tender RUQ, non distended, normal BS, Ext: No edema, no clubbing, no cyanosis Neuro: Awake, alert, oriented X 3, no focal neurological signs - Constitutional Vitals: Temp Pulse Resp BP Pulse Ox 98.2 F 92 H 18 111/63 100 07/30/19 07:50 07/30/19 07:50 07/30/19 07:50 07/30/19 07:50 07/30/19 07:50 General appearance: Present: no acute distress Results - Labs CBC & Chem 7: 07/29/19 06:43 07/30/19 08:49 Labs: Laboratory Last Values WBC 10.2 K/mm3 (4.5-11.0) 07/29/19 06:43 RBC 3.45 M/mm3 (3.65-5.03) L 07/29/19 06:43 Hgb 11.5 gm/dl (10.1-14.3) 07/29/19 06:43 Hct 35.0 % (30.3-42.9) 07/29/19 06:43 MCV 102 fl (79-97) H 07/29/19 06:43 MCH 33 pg (28-32) H 07/29/19 06:43 MCHC 33 % (30-34) 07/29/19 06:43 RDW 16.3 % (13.2-15.2) H 07/29/19 06:43 Plt Count 186 K/mm3 (140-440) 07/29/19 06:43 Lymph % (Auto) 11.3 % (13.4-35.0) L 07/29/19 06:43 Richardson % (Auto) 8.6 % (0.0-7.3) H 07/29/19 06:43 Eos % (Auto) 2.0 % (0.0-4.3) 07/29/19 06:43 Baso % (Auto) 0.7 % (0.0-1.8) 07/29/19 06:43 Lymph # 1.2 K/mm3 (1.2-5.4) 07/29/19 06:43 Richardson # 0.9 K/mm3 (0.0-0.8) H 07/29/19 06:43 Eos # 0.2 K/mm3 (0.0-0.4) 07/29/19 06:43 Baso # 0.1 K/mm3 (0.0-0.1) 07/29/19 06:43 Seg Neutrophils % 77.4 % (40.0-70.0) H 07/29/19 06:43 Seg Neutrophils # 7.9 K/mm3 (1.8-7.7) H 07/29/19 06:43 PT 15.3 Sec. (12.2-14.9) H 07/29/19 06:43 INR 1.22 (0.87-1.13) H 07/29/19 06:43 APTT 29.5 Sec. (24.2-36.6) 07/29/19 06:43 Sodium 136 mmol/L (137-145) L 07/30/19 08:49 Potassium 4.4 mmol/L (3.6-5.0) 07/30/19 08:49 Chloride 99.5 mmol/L (98-107) 07/30/19 08:49 Carbon Dioxide 21 mmol/L (22-30) L 07/30/19 08:49 Anion Gap 20 mmol/L 07/30/19 08:49 BUN 35 mg/dL (7-17) H 07/30/19 08:49 Creatinine 1.2 mg/dL (0.7-1.2) 07/30/19 08:49 Estimated GFR 58 ml/min 07/30/19 08:49 BUN/Creatinine Ratio 29 % 07/30/19 08:49 Glucose 243 mg/dL (65-100) H 07/30/19 08:49 POC Glucose 233 (70-105) H 07/30/19 07:56 Calcium 8.8 mg/dL (8.4-10.2) 07/30/19 08:49 Magnesium 2.20 mg/dL (1.7-2.3) 07/30/19 08:49 Total Bilirubin 0.80 mg/dL (0.1-1.2) 07/27/19 21:36 AST 16 units/L (5-40) 07/27/19 21:36 ALT 24 units/L (7-56) 07/27/19 21:36 Alkaline Phosphatase 79 units/L (35-129) 07/27/19 21:36 Troponin T 0.021 ng/mL (0.00-0.029) 07/28/19 00:40 NT-Pro-B Natriuret Pep 2468 pg/mL (0-450) H 07/27/19 21:36 Total Protein 6.9 g/dL (6.3-8.2) 07/27/19 21:36 Albumin 3.8 g/dL (3.9-5) L 07/27/19 21:36 Albumin/Globulin Ratio 1.2 % 07/27/19 21:36 Lipase 31 units/L (13-60) 07/27/19 21:36 Active Medications - Current Medications Current Medications: Generic Name Dose Route Start Last Admin Trade Name Mattq PRN Reason Stop Dose Admin Acetaminophen 650 mg 07/28/19 04:13 Tylenol PO Q4H PRN Pain MILD(1-3)/Fever >100.5/MARCELINO Carvedilol 3.125 mg 07/28/19 22:00 07/30/19 10:17 Coreg PO Not Given BID SANDRO Dextrose 0 ml 07/28/19 04:13 D50w (25gm) Syringe IV Q30MIN PRN Hypoglycemia Protocol Furosemide 40 mg 07/28/19 18:00 07/29/19 17:38 Lasix IV 40 mg 0600,1800 SANDRO Administration Heparin Sodium (Porcine) 5,000 unit 07/28/19 06:00 07/30/19 07:12 Heparin SUB-Q 5,000 unit Q8HR SANDRO Administration Hydralazine HCl 25 mg 07/28/19 14:00 07/29/19 23:14 Apresoline PO Not Given Q8HR SANDRO Milrinone Lactate/Dextrose 20 mg in 100 mls @ 9.12 mls/hr 07/28/19 13:00 07/30/19 04:19 Milrinone-D5w 20 Mg/100 Ml IV 07/31/19 12:59 0.25 mcg/kg/min TITR SANDRO 9.12 mls/hr Administration 0.25 MCG/KG/MIN Insulin Human Regular 0 units 07/28/19 07:30 07/29/19 23:07 Humulin R SUB-Q 3 units ACHS SANDRO Administration Protocol Isosorbide Dinitrate 10 mg 07/28/19 14:00 07/29/19 22:25 Isordil Titradose PO Not Given Q8HR [facility] Magnesium Hydroxide 30 ml 07/28/19 04:13 07/29/19 22:19 Milk Of Magnesia PO 30 ml Q4H PRN Administration Constipation Morphine Sulfate 2 mg 07/28/19 04:13 Morphine IV Q4H PRN Pain, Moderate (4-6) Nicotine 21 mg 07/29/19 13:00 07/30/19 10:18 Habitrol TD 21 mg QDAY SANDRO Administration Ondansetron HCl 4 mg 07/28/19 04:13 07/28/19 08:23 Zofran IV 4 mg Q8H PRN Administration Nausea And Vomiting Sodium Chloride 10 ml 07/28/19 10:00 07/29/19 22:26 Sodium Chloride Flush Syringe 10 Ml IV 10 ml BID SANDRO Administration Sodium Chloride 10 ml 07/28/19 04:13 Sodium Chloride Flush Syringe 10 Ml IV PRN PRN LINE FLUSH Spironolactone 12.5 mg 07/29/19 10:00 07/30/19 10:18 Aldactone PO 12.5 mg QDAY SANDRO Administration Ursodiol 500 mg 07/29/19 17:00 07/30/19 10:17 Kaela PO 500 mg TIDDIAB SANDRO Administration Nutrition/Malnutrition Assess - Dietary Evaluation Nutrition/Malnutrition Findings: Nutrition Notes Start: 07/28/19 13:20 Freq: Status: Active Protocol: Document 07/28/19 13:20 OH (Rec: 07/28/19 13:35 OH [id number]) Nutrition Notes Need for Assessment generated from: MD Order Initial or Follow up Assessment Current Diagnosis Diabetes,Hypertension Other Pertinent Diagnosis CHF; GALLSTONES; BILIARY COLIC ; OBESITY Current Diet CARDIAC/CONSISTENT CHO Labs/Tests BUN 38 CR 1.7 ALB 3.8 Pertinent Medications HEPARIN LASIX HUMULIN R Height 5 ft 4 in Weight 121.6 kg [place] Body Weight (kg) 54.54 BMI 46.0 Intake Prior to Admission Poor Weight Status Morbidly Obese Subjective/Other Information MD CONSULT. Pt. sitting up in the bed. Pt. verbalized she had a f/u appointment w/PCP x2 weeks ago. Pt. indicates her appetite has steadily decreased since then. Pt. reports she has joined a gym but experienced SOB. Pt. eating out 3-5x/wk at [employer] etc. Pt. states she is consuming vegetables/salads but also fried foods quite often. MD did come in and discuss w/pt the importance of monitoring diet closer and limiting processed/packaged/eating out/ fried foods. Per pt she hasn't gone to a DM class per se but learned from her mother as she was a diabetic. Percent of energy/protein needs met: 75/75% Burn Absent Trauma Absent GI Symptoms None Food Allergy No Current % PO Fair (50-74%) Minimum of two criteria No physical signs of malnutrition #1 Nutrition Diagnosis Food and nutrition-related knowledge deficit Etiology inadequate DM education As Evidenced by Signs and Symptoms poor understanding of CHO types/maintaining BS wnl Is patient on ventilator? No Is Patient Ambulatory and/or Out of Bed Yes REE-([facility]-ambulatory/OOB) [ 2373.800 NUTR.[id number]] Kcal/Kg value to use for calculation 15 Approximate Energy Requirements Using 1824 kcal/Kg Calculation Used for Recommendations Kcal/kg Additional Notes PRO: .8-1.0 g/kg 44-55 g/ day FLUID: 1 ml/kcal Nutrition Intervention Change Diet Order: cont cardiac/consistent CHO Teaching Recipient Patient Learning Readiness Fair Teaching Methods Discussion,Demonstration, Handout Response to Teaching Verbalize understanding Education Handouts Provided Pt. educated on need to reduce fatty food consumption. Discussed w/pt fruit/vegetable /reduced na intake to benefit manager long term care health. Provided handout listing low na choices and encouraging nutrient dense foods. Enc pt to limit eating out/fried foods/ packaged items. Discussed hidden na foods. Rev high CHO food choices such as fruit. Educ pt on combining fruit ( those w/skin) in addition to PRO/FAT to better control blood sugar levels. Pt. verbalized understanding. Sugg choosing baked/grilled/ broiled options and increasing consumption of fish/bloom/ vegetarian PRO sources. Enc pt to be as active as possible to assist in improvement in control of DM and overall health. Barriers to Learning Motivation,Age related, Financial,Environmental,Social Revisit per MD consult or patient Sign Off request:
--- NOTE | 2019-07-30 10:45 | Progress Note ---
<DIGNA JAY - Last Filed: 07/30/19 10:43> Assessment and Plan Chronic systolic heart failure Cholelithiasis Dilated nonischemic cardiomyopathy left ventricular ejection fraction on echocardiogram was 10-15% at [facility] 2 weeks ago . Cardiac defibrillator in situ Noncompliant with medical therapy Obese Hypertension Recommendations: Daily weight. Fluid /sodium restriction. Continue medical therapy for chronic systolic heart failure including a trial of intravenous milrinone for an additional 24hrs. Subjective Date of service: 07/30/19 Interval history: IV milrinone continues. Patient has no complaints. Objective Vital Signs Temp Pulse Resp BP Pulse Ox 07/30/19 07:50 98.2 F 92 H 18 111/63 100 07/30/19 03:07 98.6 F 94 H 16 93/49 100 07/30/19 01:28 101/81 07/29/19 23:14 92 H 105/58 07/29/19 22:25 93 H 115/48 07/29/19 22:18 93 H 115/48 07/29/19 19:13 98.5 F 92 H 16 105/58 91 07/29/19 16:50 98.6 F 96 H 20 114/78 95 07/29/19 11:28 98.7 F 97 H 18 99/69 89 - Physical Examination General: No Apparent Distress HEENT: Positive: PERRL Neck: Positive: trachea midline Cardiac: Positive: Other (paced) Lungs: Positive: Decreased Breath Sounds Neuro: Positive: Grossly Intact Extremities: Absent: edema - Labs and Meds Comprehensive Metabolic Panel 07/30/19 Range/Units 08:49 Sodium 136 L (137-145) mmol/L Potassium 4.4 (3.6-5.0) mmol/L Chloride 99.5 (98-107) mmol/L Carbon Dioxide 21 L (22-30) mmol/L BUN 35 H (7-17) mg/dL Creatinine 1.2 (0.7-1.2) mg/dL Glucose 243 H (65-100) mg/dL Calcium 8.8 (8.4-10.2) mg/dL <ANDREI LLAMAS - Last Filed: 08/02/19 10:48> Assessment and Plan I've seen and evaluated the patient and agree with the assessment and plan. The patient is presenting with a history of chronic systolic heart failure, cholelithiasis, dilated nonischemic cardiomyopathy with ejection fraction 10-15% and medication noncompliance. At this time recommend daily weights as well as strict diagnosis. Fluid and sodium restriction. Recommend continued goal- directed medical therapy for treatment of severe nonischemic dilated cardiomyopathy. Objective Vital Signs Temp Pulse Resp BP Pulse Ox 08/02/19 05:01 98.0 F 78 18 118/77 86 08/01/19 23:08 98.4 F 84 18 88/55 89 08/01/19 20:40 98.3 F 82 18 107/73 94 08/01/19 15:11 108/76 97 08/01/19 15:00 82 22 108/76 98 08/01/19 14:51 40 L 21 107/58 98 08/01/19 14:41 83 19 107/58 100 08/01/19 14:30 105 H 19 107/58 08/01/19 14:21 64 21 109/61 98 08/01/19 14:11 82 19 109/61 98 08/01/19 14:00 89 26 H 109/61 96 08/01/19 13:51 81 18 110/86 92 08/01/19 13:41 80 18 101/58 92 08/01/19 13:31 79 18 101/58 91 08/01/19 13:21 79 16 110/86 92 08/01/19 13:11 80 18 110/86 93 08/01/19 13:05 86 110/86 08/01/19 13:01 81 15 110/86 94 08/01/19 12:51 108/78 94 08/01/19 12:41 108/78 90 08/01/19 12:30 108/78 95 08/01/19 12:21 109/73 97 08/01/19 12:11 109/73 96 08/01/19 12:00 109/73 95 08/01/19 11:51 107/78 96 08/01/19 11:41 106/79 96 08/01/19 11:30 106/79 94 08/01/19 11:21 107/78 97 08/01/19 11:11 107/78 97 08/01/19 11:00 81 23 107/78 97 08/01/19 10:50 80 24 116/85 99
--- NOTE | 2019-07-30 12:37 | Progress Note ---
Assessment and Plan 49 y/o, obese female smoker admitted with abdominal pain in need of cholecystectomy. No new recommendations for today. Same recs as below regarding surgical risk. Patient will follow up in our office for full PFT including lung volumes and dlco 1. Limited history to work with. Patient has not been hospitalized for breathing. She is currently not in any kind of respiratory distress or being treated for the former. We did discuss the importance of smoking cessation. With lack of objective data, difficult to comment, especially in regards to COPD. The patient's ARISCAT score is 15 which is low risk of in-hospital post- op pulmonary complications. If the benefits outweigh the risk, then should proceed with surgery. Patient will need to follow up with us in our office for official screening for COPD and THANG. Concern for central sleep apnea given CAD. Post op would have PPV ready incase patient remains extremely groggy from anesthesia as she could be at risk for hypercapnea. Will continue to follow along with you. Thank you for this consult. Subjective Date of service: 07/30/19 Interval history: Remains on milrione. Objective Vital Signs - 12hr 07/30/19 07/30/19 07/30/19 01:28 03:07 07:50 Temperature 98.6 F 98.2 F Pulse Rate 94 H 92 H Respiratory 16 18 Rate Blood Pressure 101/81 93/49 111/63 O2 Sat by Pulse 100 100 Oximetry 07/30/19 08:00 Temperature Pulse Rate Respiratory Rate Blood Pressure O2 Sat by Pulse 98 Oximetry Constitutional: no acute distress, alert, other (obese) Eyes: non-icteric ENT: oropharynx moist Neck: supple, no JVD Effort: normal Ascultation: Bilateral: clear, diminished breath sounds Percussion: Bilateral: not dull Tactile fremitus: Bilateral: normal Cardiovascular: regular rate and rhythm Extremities: no edema, pink and warm, pulses normal CBC and BMP: 07/29/19 06:43 07/30/19 08:49 ABG, PT/INR, D-dimer: PT/INR, D-dimer PT 15.3 Sec. (12.2-14.9) H 07/29/19 06:43 INR 1.22 (0.87-1.13) H 07/29/19 06:43 Abnormal lab findings: Abnormal Labs 07/27/19 07/27/19 07/27/19 21:36 21:36 21:36 WBC 11.4 H RBC MCV 100 H MCH 33 H RDW 16.4 H Lymph % (Auto) Starke % (Auto) Starke # Seg Neutrophils % Seg Neutrophils # 7.9 H PT 15.6 H INR 1.25 H Sodium Carbon Dioxide 21 L BUN 38 H Creatinine 1.7 H Glucose 189 H POC Glucose NT-Pro-B Natriuret Pep 2468 H Albumin 3.8 L 07/28/19 07/29/19 07/29/19 16:02 06:43 06:43 WBC RBC 3.45 L MCV 102 H MCH 33 H RDW 16.3 H Lymph % (Auto) 11.3 L Starke % (Auto) 8.6 H Starke # 0.9 H Seg Neutrophils % 77.4 H Seg Neutrophils # 7.9 H PT 15.3 H INR 1.22 H Sodium Carbon Dioxide BUN Creatinine Glucose POC Glucose 315 H NT-Pro-B Natriuret Pep Albumin 07/29/19 07/29/19 07/29/19 06:43 11:35 17:02 WBC RBC MCV MCH RDW Lymph % (Auto) Starke % (Auto) Starke # Seg Neutrophils % Seg Neutrophils # PT INR Sodium 134 L Carbon Dioxide BUN 40 H Creatinine 1.4 H Glucose 193 H POC Glucose 211 H 252 H NT-Pro-B Natriuret Pep Albumin 07/29/19 07/30/19 07/30/19 21:52 07:56 08:49 WBC RBC MCV MCH RDW Lymph % (Auto) Starke % (Auto) Starke # Seg Neutrophils % Seg Neutrophils # PT INR Sodium 136 L Carbon Dioxide 21 L BUN 35 H Creatinine Glucose 243 H POC Glucose 225 H 233 H NT-Pro-B Natriuret Pep Albumin 07/30/19 11:46 WBC RBC MCV MCH RDW Lymph % (Auto) Starke % (Auto) Starke # Seg Neutrophils % Seg Neutrophils # PT INR Sodium Carbon Dioxide BUN Creatinine Glucose POC Glucose 270 H NT-Pro-B Natriuret Pep Albumin
[2019-07-30] MEDS: hydrALAZINE 25 MG TAB PO SCH ×2 (14:00→21:37)
[2019-07-30] MEDS: ISOSORBIDE DINITRATE 10 MG TAB PO SCH ×2 (14:00→21:38)
--- NOTE | 2019-07-30 16:53 | Progress Note ---
Assessment and Plan symptomatic cholelithiasis - stable, afebrile, showing signs of clinical improvement continues to he a high risk surgical candidate given her acute on chronic CHF, 10-15% EF, and defibrillator, with DM and renal insufficiency. Spoke with anesthesia and optimally would like her optimized and controlled for at least several weeks prior to elective surgical procedure. Spoke to patient at length who expressed understanding and agreed. continue supportive measures such as low fat diet, with prn pain and nausea meds. Subjective Date of service: 07/30/19 Patient Reports: Positive: no new complaints, feels better, pain is less, tolerating a regular diet (pt says that she has not been having very much abdominal pain or nausea. she is tolerating diet, but says that the food from the hospital has no flavor so she has her family bring her food. ) Objective Vital Signs - 12hr 07/30/19 07/30/19 07/30/19 07:50 08:00 10:00 Temperature 98.2 F Pulse Rate 92 H 91 H Respiratory 18 Rate Blood Pressure 111/63 O2 Sat by Pulse 100 98 Oximetry 07/30/19 07/30/19 11:41 14:00 Temperature 98.6 F Pulse Rate 92 H Respiratory 20 Rate Blood Pressure 90/49 90/56 O2 Sat by Pulse 91 Oximetry - General physical appearance no distress, obese - Respiratory normal expansion, normal respiratory effort - Abdomen soft, other (obese, mild tenderness to deep palpation RUQ, nor rebound or guarding) - Musculoskeletal other (edema lower extremities) - Labs 07/29/19 06:43 07/30/19 08:49 Diabetes panel 07/30/19 Range/Units 08:49 Sodium 136 L (137-145) mmol/L Potassium 4.4 (3.6-5.0) mmol/L Chloride 99.5 (98-107) mmol/L Carbon Dioxide 21 L (22-30) mmol/L BUN 35 H (7-17) mg/dL Creatinine 1.2 (0.7-1.2) mg/dL Glucose 243 H (65-100) mg/dL Calcium 8.8 (8.4-10.2) mg/dL Calcium panel 07/30/19 Range/Units 08:49 Calcium 8.8 (8.4-10.2) mg/dL Pituitary panel 07/30/19 Range/Units 08:49 Sodium 136 L (137-145) mmol/L Potassium 4.4 (3.6-5.0) mmol/L Chloride 99.5 (98-107) mmol/L Carbon Dioxide 21 L (22-30) mmol/L BUN 35 H (7-17) mg/dL Creatinine 1.2 (0.7-1.2) mg/dL Glucose 243 H (65-100) mg/dL Calcium 8.8 (8.4-10.2) mg/dL Adrenal panel 07/30/19 Range/Units 08:49 Sodium 136 L (137-145) mmol/L Potassium 4.4 (3.6-5.0) mmol/L Chloride 99.5 (98-107) mmol/L Carbon Dioxide 21 L (22-30) mmol/L BUN 35 H (7-17) mg/dL Creatinine 1.2 (0.7-1.2) mg/dL Glucose 243 H (65-100) mg/dL Calcium 8.8 (8.4-10.2) mg/dL
[2019-07-30] MEDS: FUROSEMIDE 40 MG/4 ML INJ IV SCH (18:38)
[2019-07-31] MEDS: MILRINONE-D5W 20 MG/100 ML 20 MG/100 ML BAG IV SCH (02:45)
[2019-07-31] MEDS: FUROSEMIDE 40 MG/4 ML INJ IV SCH ×2 (05:27→18:11)
[2019-07-31] MEDS: HEPARIN 5,000 UNIT/1 ML VIAL SUB-Q SCH ×3 (05:27→22:15)
[2019-07-31] MEDS: hydrALAZINE 25 MG TAB PO SCH ×3 (05:28→22:11)
[2019-07-31] MEDS: ISOSORBIDE DINITRATE 10 MG TAB PO SCH ×3 (05:28→22:12)
--- NOTE | 2019-07-31 07:01 | Event Note ---
Code MET Patient with heart rate in the 160s, asymptomatic She has a pacemaker, obtain EKG, heart rate is now dropped to 95 Transfer to ICU, page cardiology regarding patient Patient signed out to Dr Fregoso
--- NOTE | 2019-07-31 07:25 | Progress Note ---
Assessment and Plan Assessment and plan: 39-year-old female with known history of morbid obesity, COPD, diabetes mellitus, GERD, hypertension and history of defibrillator placement presented to the emergency room complaining of abdominal pain and associated nausea and vomiting. Abdominal pain is said to be crampy and has been intermittent over the past few days she indicates that she was admitted at [facility] about 4 days ago when she presented with some flulike symptoms including cough, chills fever. Indicates she was treated for symptoms but she has no known diagnosis. Fever seems to have subsided but she continues to have occasional cough. Abdominal pain is said to be more in the right upper abdomen and the epigastric region. There is no no relieving or exacerbating factor. Upon arrival in the emergency room and during evaluation she was found to be hypoxic with an O2 saturation of about 89%. Work-up in the emergency room including CT of the abdomen revealed gallstones without cholecystitis. General surgeon, Dr. Vasquez consulted, evaluated. She was diagnosed with CHF exacerbation, started on Milrinone drip. Biliary colic, cholelithiasis Patient evaluated by Gen surgeon No urgent surgery planned. Discussed with Surgeon Surgery possibly as out patient when stable cardiac patrick Rapid response called this morning for HR 160s. Rapid afib, followed by atrial tachycardia. She was transferred to ICU. Later seen by cardiology, put on digoxin, Metoprolol, Amiodarone Acute on chronic systolic CHF was on Milrinone drip, completed today, 07/31 Acute resp failure due to CHF exacerbation Supplemental Oxygen Nausea and vomiting On IV Zofran as needed Diabetes mellitus We will monitor Accu-Cheks and continue routine home medications. Hypertension Blood pressure stable will monitor vital signs closely DVT prophylaxis Patient placed on subcutaneous heparin. Full code status History Interval history: Palpitations this morning, HR in 160s, therefore transferred to ICU No chest pain Hospitalist Physical - Physical exam Narrative exam: Gen: Not in acute distress, lying in bed, morbidly obese HEENT: Normocephalic, atraumatic Neck: supple, no JVD Heart: S1 and S2 reg, no murmurs, rubs or gallop Lungs: Bilateral basal crackles, Abd: soft, tender RUQ, non distended, normal BS, Ext: No edema, no clubbing, no cyanosis Neuro: Awake, alert, oriented X 3, no focal neurological signs - Constitutional Vitals: Temp Pulse Resp BP Pulse Ox 98.4 F 94 H 18 100/75 96 07/31/19 03:41 07/31/19 05:28 07/31/19 03:41 07/31/19 05:28 07/31/19 06:43 General appearance: Present: no acute distress Results - Labs CBC & Chem 7: 07/31/19 07:55 07/31/19 07:55 Labs: Laboratory Last Values WBC 10.2 K/mm3 (4.5-11.0) 07/29/19 06:43 RBC 3.45 M/mm3 (3.65-5.03) L 07/29/19 06:43 Hgb 11.5 gm/dl (10.1-14.3) 07/29/19 06:43 Hct 35.0 % (30.3-42.9) 07/29/19 06:43 MCV 102 fl (79-97) H 07/29/19 06:43 MCH 33 pg (28-32) H 07/29/19 06:43 MCHC 33 % (30-34) 07/29/19 06:43 RDW 16.3 % (13.2-15.2) H 07/29/19 06:43 Plt Count 186 K/mm3 (140-440) 07/29/19 06:43 Lymph % (Auto) 11.3 % (13.4-35.0) L 07/29/19 06:43 [place] % (Auto) 8.6 % (0.0-7.3) H 07/29/19 06:43 Eos % (Auto) 2.0 % (0.0-4.3) 07/29/19 06:43 Baso % (Auto) 0.7 % (0.0-1.8) 07/29/19 06:43 Lymph # 1.2 K/mm3 (1.2-5.4) 07/29/19 06:43 Bladen # 0.9 K/mm3 (0.0-0.8) H 07/29/19 06:43 Eos # 0.2 K/mm3 (0.0-0.4) 07/29/19 06:43 Baso # 0.1 K/mm3 (0.0-0.1) 07/29/19 06:43 Seg Neutrophils % 77.4 % (40.0-70.0) H 07/29/19 06:43 Seg Neutrophils # 7.9 K/mm3 (1.8-7.7) H 07/29/19 06:43 PT 15.3 Sec. (12.2-14.9) H 07/29/19 06:43 INR 1.22 (0.87-1.13) H 07/29/19 06:43 APTT 29.5 Sec. (24.2-36.6) 07/29/19 06:43 Sodium 136 mmol/L (137-145) L 07/30/19 08:49 Potassium 4.4 mmol/L (3.6-5.0) 07/30/19 08:49 Chloride 99.5 mmol/L (98-107) 07/30/19 08:49 Carbon Dioxide 21 mmol/L (22-30) L 07/30/19 08:49 Anion Gap 20 mmol/L 07/30/19 08:49 BUN 35 mg/dL (7-17) H 07/30/19 08:49 Creatinine 1.2 mg/dL (0.7-1.2) 07/30/19 08:49 Estimated GFR 58 ml/min 07/30/19 08:49 BUN/Creatinine Ratio 29 % 07/30/19 08:49 Glucose 243 mg/dL (65-100) H 07/30/19 08:49 POC Glucose 274 (70-105) H 07/31/19 06:57 Calcium 8.8 mg/dL (8.4-10.2) 07/30/19 08:49 Magnesium 2.20 mg/dL (1.7-2.3) 07/30/19 08:49 Total Bilirubin 0.80 mg/dL (0.1-1.2) 07/27/19 21:36 AST 16 units/L (5-40) 07/27/19 21:36 ALT 24 units/L (7-56) 07/27/19 21:36 Alkaline Phosphatase 79 units/L (35-129) 07/27/19 21:36 Troponin T 0.021 ng/mL (0.00-0.029) 07/28/19 00:40 NT-Pro-B Natriuret Pep 2468 pg/mL (0-450) H 07/27/19 21:36 Total Protein 6.9 g/dL (6.3-8.2) 07/27/19 21:36 Albumin 3.8 g/dL (3.9-5) L 07/27/19 21:36 Albumin/Globulin Ratio 1.2 % 07/27/19 21:36 Lipase 31 units/L (13-60) 07/27/19 21:36 Active Medications - Current Medications Current Medications: Generic Name Dose Route Start Last Admin Trade Name Freq PRN Reason Stop Dose Admin Acetaminophen 650 mg 07/28/19 04:13 Tylenol PO Q4H PRN Pain MILD(1-3)/Fever >100.5/MARCELINO Carvedilol 3.125 mg 07/28/19 22:00 07/30/19 21:38 Coreg PO 3.125 mg BID SANDRO Administration Dextrose 0 ml 07/28/19 04:13 D50w (25gm) Syringe IV Q30MIN PRN Hypoglycemia Protocol Furosemide 40 mg 07/28/19 18:00 07/31/19 05:27 Lasix IV 40 mg 0600,1800 SANDRO Administration Heparin Sodium (Porcine) 5,000 unit 07/28/19 06:00 07/31/19 05:27 Heparin SUB-Q 5,000 unit Q8HR SANDRO Administration Hydralazine HCl 25 mg 07/28/19 14:00 07/31/19 05:28 Apresoline PO 25 mg Q8HR SANDRO Administration Milrinone Lactate/Dextrose 20 mg in 100 mls @ 9.12 mls/hr 07/28/19 13:00 07/31/19 02:45 Milrinone-D5w 20 Mg/100 Ml IV 07/31/19 12:59 0.25 mcg/kg/min TITR SANDRO 9.12 mls/hr Administration 0.25 MCG/KG/MIN Insulin Human Regular 0 units 07/28/19 07:30 07/30/19 21:40 Humulin R SUB-Q 4 units ACHS SANDRO Administration Protocol Isosorbide Dinitrate 10 mg 07/28/19 14:00 07/31/19 05:28 Isordil Titradose PO 10 mg Q8HR SANDRO Administration Magnesium Hydroxide 30 ml 07/28/19 04:13 07/29/19 22:19 Milk Of Magnesia PO 30 ml Q4H PRN Administration Constipation Morphine Sulfate 2 mg 07/28/19 04:13 Morphine IV Q4H PRN Pain, Moderate (4-6) Nicotine 21 mg 07/29/19 13:00 07/30/19 10:18 Habitrol TD 21 mg QDAY SANDRO Administration Ondansetron HCl 4 mg 07/28/19 04:13 07/28/19 08:23 Zofran IV 4 mg Q8H PRN Administration Nausea And Vomiting Sodium Chloride 10 ml 07/28/19 10:00 07/30/19 21:39 Sodium Chloride Flush Syringe 10 Ml IV 10 ml BID SANDRO Administration Sodium Chloride 10 ml 07/28/19 04:13 Sodium Chloride Flush Syringe 10 Ml IV PRN PRN LINE FLUSH Spironolactone 12.5 mg 07/29/19 10:00 07/30/19 10:18 Aldactone PO 12.5 mg QDAY SANDRO Administration Ursodiol 500 mg 07/29/19 17:00 07/30/19 18:39 Kaela PO 500 mg TIDDIAB SANDRO Administration Nutrition/Malnutrition Assess - Dietary Evaluation Nutrition/Malnutrition Findings: Nutrition Notes Start: 07/28/19 13:20 Freq: Status: Active Protocol: Document 07/28/19 13:20 OH (Rec: 07/28/19 13:35 OH [id number]) Nutrition Notes Need for Assessment generated from: MD Order Initial or Follow up Assessment Current Diagnosis Diabetes,Hypertension Other Pertinent Diagnosis CHF; GALLSTONES; BILIARY COLIC ; OBESITY Current Diet CARDIAC/CONSISTENT CHO Labs/Tests BUN 38 CR 1.7 ALB 3.8 Pertinent Medications HEPARIN LASIX HUMULIN R Height 5 ft 4 in Weight 121.6 kg [place] Body Weight (kg) 54.54 BMI 46.0 Intake Prior to Admission Poor Weight Status Morbidly Obese Subjective/Other Information MD CONSULT. Pt. sitting up in the bed. Pt. verbalized she had a f/u appointment w/PCP x2 weeks ago. Pt. indicates her appetite has steadily decreased since then. Pt. reports she has joined a gym but experienced SOB. Pt. eating out 3-5x/wk at [employer] etc. Pt. states she is consuming vegetables/salads but also fried foods quite often. MD did come in and discuss w/pt the importance of monitoring diet closer and limiting processed/packaged/eating out/ fried foods. Per pt she hasn't gone to a DM class per se but learned from her mother as she was a diabetic. Percent of energy/protein needs met: 75/75% Burn Absent Trauma Absent GI Symptoms None Food Allergy No Current % PO Fair (50-74%) Minimum of two criteria No physical signs of malnutrition #1 Nutrition Diagnosis Food and nutrition-related knowledge deficit Etiology inadequate DM education As Evidenced by Signs and Symptoms poor understanding of CHO types/maintaining BS wnl Is patient on ventilator? No Is Patient Ambulatory and/or Out of Bed Yes REE-(Alexander-St. Jeor-ambulatory/OOB) [ 2373.800 NUTR.MSJOOB] Kcal/Kg value to use for calculation 15 Approximate Energy Requirements Using 1824 kcal/Kg Calculation Used for Recommendations Kcal/kg Additional Notes PRO: .8-1.0 g/kg 44-55 g/ day FLUID: 1 ml/kcal Nutrition Intervention Change Diet Order: cont cardiac/consistent CHO Teaching Recipient Patient Learning Readiness Fair Teaching Methods Discussion,Demonstration, Handout Response to Teaching Verbalize understanding Education Handouts Provided Pt. educated on need to reduce fatty food consumption. Discussed w/pt fruit/vegetable /reduced na intake to benefit termite control representative health. Provided handout listing low na choices and encouraging nutrient dense foods. Enc pt to limit eating out/fried foods/ packaged items. Discussed hidden na foods. Rev high CHO food choices such as fruit. Educ pt on combining fruit ( those w/skin) in addition to PRO/FAT to better control blood sugar levels. Pt. verbalized understanding. Sugg choosing baked/grilled/ broiled options and increasing consumption of fish/bloom/ vegetarian PRO sources. Enc pt to be as active as possible to assist in improvement in control of DM and overall health. Barriers to Learning Motivation,Age related, Financial,Environmental,Social Revisit per MD consult or patient Sign Off request:
[2019-07-31 08:18] LABS: Hemoglobin 11.9 gm/dl (10.1-14.3); Mean Corpuscular HGB Conc 33 % (30-34); Mean Corpuscular Volume 100 fl (79-97); Platelet Count 184 K/mm3 (140-440); Red Cell Distribution Width 16.5 % (13.2-15.2)
[2019-07-31 08:34] LABS: Calcium 8.9 mg/dL (8.4-10.2)
[2019-07-31] MEDS ORDERED: AMIODARONE 150 MG in DEXTROSE 5% IN WATER 100 ML IV ONE ×2 (10:00)
[2019-07-31] MEDS ORDERED: AMIODARONE 900 MG in DEXTROSE 5% IN WATER 482 ML IV SCH ×2 (10:00)
[2019-07-31] MEDS ORDERED: METOPROLOL TARTRATE 5 MG/5 ML INJ IV PRN (10:11)
[2019-07-31] MEDS: SPIRONOLACTONE 25 MG TAB PO SCH (10:31)
[2019-07-31] MEDS: NICOTINE 21 MG/24 HR PATCH TD SCH (10:31)
[2019-07-31] MEDS: carvediloL 3.125 MG TAB PO SCH ×2 (10:33→22:12)
--- NOTE | 2019-07-31 10:34 | Progress Note ---
Assessment and Plan Chronic systolic heart failure Cholelithiasis Dilated nonischemic cardiomyopathy left ventricular ejection fraction on echocardiogram was 10-15% at [facility] 2 weeks ago . Cardiac defibrillator in situ Noncompliant with medical therapy Obese Hypertension Subjective Date of service: 07/31/19 Interval history: Patient was transferred to CCU due to wide complex tachycardia on telemetry. Objective Vital Signs Temp Pulse Resp BP Pulse Ox 07/31/19 08:00 98.1 F 07/31/19 06:43 96 07/31/19 05:28 94 H 100/75 07/31/19 03:41 98.4 F 94 H 18 100/75 89 07/30/19 23:40 98.9 F 92 H 16 97/58 94 07/30/19 22:00 107 H 07/30/19 21:38 93 H 99/74 07/30/19 21:37 93 H 99/74 07/30/19 19:57 98.6 F 93 H 18 99/74 94 07/30/19 15:57 98.0 F 94 H 18 110/72 93 07/30/19 14:00 90/56 07/30/19 11:41 98.6 F 92 H 20 90/49 91 - Physical Examination General: No Apparent Distress HEENT: Positive: PERRL Neck: Positive: trachea midline Cardiac: Positive: Other (atrial tachycardia) Lungs: Positive: Decreased Breath Sounds Neuro: Positive: Grossly Intact Extremities: Absent: edema - Labs and Meds CBC 07/31/19 Range/Units 07:55 WBC 8.6 (4.5-11.0) K/mm3 RBC 3.60 L (3.65-5.03) M/mm3 Hgb 11.9 (10.1-14.3) gm/dl Hct 36.0 (30.3-42.9) % Plt Count 184 (140-440) K/mm3 Comprehensive Metabolic Panel 07/31/19 Range/Units 07:55 Sodium 138 (137-145) mmol/L Potassium 4.3 (3.6-5.0) mmol/L Chloride 100.9 (98-107) mmol/L Carbon Dioxide 23 (22-30) mmol/L BUN 29 H (7-17) mg/dL Creatinine 1.2 (0.7-1.2) mg/dL Glucose 240 H (65-100) mg/dL Calcium 8.9 (8.4-10.2) mg/dL
--- NOTE | 2019-07-31 11:28 | Progress Note ---
Assessment and Plan 49 y/o, obese female smoker admitted with abdominal pain in need of cholecystectomy. 07/31/19 Spoke with cards, feel this is an atrial tachycardia that the ventricle is pacing to keep up with based on 12 lead done prior to transfer to ICU. Will give Amio bolus and start on amio drip for rate control. Cardiology will add o ther medications as they see fit. Def is not firing, may have higer threshold. Patient stable. Will keep in ICU today, if not further issues, transfer back out tomorrow. Remainder of note speaks to risk stratification for possible cholecystectomy. No new recommendations for today. Same recs as below regarding surgical risk. Patient will follow up in our office for full PFT including lung volumes and dlco 1. Limited history to work with. Patient has not been hospitalized for breathing. She is currently not in any kind of respiratory distress or being treated for the former. We did discuss the importance of smoking cessation. With lack of objective data, difficult to comment, especially in regards to COPD. The patient's ARISCAT score is 15 which is low risk of in-hospital post- op pulmonary complications. If the benefits outweigh the risk, then should proceed with surgery. Patient will need to follow up with us in our office for official screening for COPD and THANG. Concern for central sleep apnea given CAD. Post op would have PPV ready incase patient remains extremely groggy from anesthesia as she could be at risk for hypercapnea. Will continue to follow along with you. Thank you for this consult. Subjective Date of service: 07/31/19 Interval history: patient transferred to the unit after wide complex tachycardia seen on tele monitoring. Patient awake and alert. Can feel her heart racing but is hungry. Family at bedside. Denies any chest pain. BP stable. Objective Vital Signs - 12hr 07/30/19 07/31/19 07/31/19 23:40 03:41 05:28 Temperature 98.9 F 98.4 F Pulse Rate 92 H 94 H 94 H Respiratory 16 18 Rate Blood Pressure 97/58 100/75 100/75 O2 Sat by Pulse 94 89 Oximetry 07/31/19 07/31/19 06:43 08:00 Temperature 98.1 F Pulse Rate Respiratory Rate Blood Pressure O2 Sat by Pulse 96 Oximetry Constitutional: no acute distress, alert, other (obese) Eyes: non-icteric ENT: oropharynx moist Neck: supple, no JVD Effort: normal Ascultation: Bilateral: clear, diminished breath sounds Percussion: Bilateral: not dull Tactile fremitus: Bilateral: normal Cardiovascular: regular rate and rhythm Extremities: no edema, pink and warm, pulses normal CBC and BMP: 07/31/19 07:55 07/31/19 07:55 ABG, PT/INR, D-dimer: PT/INR, D-dimer PT 15.3 Sec. (12.2-14.9) H 07/29/19 06:43 INR 1.22 (0.87-1.13) H 07/29/19 06:43 Abnormal lab findings: Abnormal Labs 07/27/19 07/27/19 07/27/19 21:36 21:36 21:36 WBC 11.4 H RBC MCV 100 H MCH 33 H RDW 16.4 H Lymph % (Auto) Barry % (Auto) Barry # Seg Neutrophils % Seg Neutrophils # 7.9 H PT 15.6 H INR 1.25 H Sodium Carbon Dioxide 21 L BUN 38 H Creatinine 1.7 H Glucose 189 H POC Glucose NT-Pro-B Natriuret Pep 2468 H Albumin 3.8 L 07/28/19 07/29/19 07/29/19 16:02 06:43 06:43 WBC RBC 3.45 L MCV 102 H MCH 33 H RDW 16.3 H Lymph % (Auto) 11.3 L Barry % (Auto) 8.6 H Barry # 0.9 H Seg Neutrophils % 77.4 H Seg Neutrophils # 7.9 H PT 15.3 H INR 1.22 H Sodium Carbon Dioxide BUN Creatinine Glucose POC Glucose 315 H NT-Pro-B Natriuret Pep Albumin 07/29/19 07/29/19 07/29/19 06:43 11:35 17:02 WBC RBC MCV MCH RDW Lymph % (Auto) Barry % (Auto) Barry # Seg Neutrophils % Seg Neutrophils # PT INR Sodium 134 L Carbon Dioxide BUN 40 H Creatinine 1.4 H Glucose 193 H POC Glucose 211 H 252 H NT-Pro-B Natriuret Pep Albumin 07/29/19 07/30/19 07/30/19 21:52 07:56 08:49 WBC RBC MCV MCH RDW Lymph % (Auto) Barry % (Auto) Barry # Seg Neutrophils % Seg Neutrophils # PT INR Sodium 136 L Carbon Dioxide 21 L BUN 35 H Creatinine Glucose 243 H POC Glucose 225 H 233 H NT-Pro-B Natriuret Pep Albumin 07/30/19 07/30/19 07/30/19 11:46 16:04 21:00 WBC RBC MCV MCH RDW Lymph % (Auto) Barry % (Auto) Barry # Seg Neutrophils % Seg Neutrophils # PT INR Sodium Carbon Dioxide BUN Creatinine Glucose POC Glucose 270 H 275 H 297 H NT-Pro-B Natriuret Pep Albumin 07/31/19 07/31/19 07/31/19 06:57 07:55 07:55 WBC RBC 3.60 L MCV 100 H MCH 33 H RDW 16.5 H Lymph % (Auto) Barry % (Auto) Barry # Seg Neutrophils % Seg Neutrophils # PT INR Sodium Carbon Dioxide BUN 29 H Creatinine Glucose 240 H POC Glucose 274 H NT-Pro-B Natriuret Pep Albumin
[2019-07-31] MEDS: INSULIN NPH/REGULAR 70/30 INJ SUB-Q SCH ×2 (12:47→17:02)
[2019-07-31] MEDS: INSULIN REGULAR, HUMAN 100 UNITS/1 ML SUB-Q SCH ×3 (12:51→22:14)
[2019-07-31] MEDS: URSODIOL 250 MG TAB PO SCH ×2 (14:45→17:19)
[2019-07-31] MEDS: DIGOXIN 0.5 MG/2 ML INJ IV SCH ×2 (14:46→17:21)
[2019-07-31] MEDS: ONDANSETRON 4 MG/2 ML INJ IV PRN (19:45)
[2019-07-31] MEDS: MORPHINE 2 MG/1 ML INJ IV PRN (19:50)
[2019-08-01] MEDS: MORPHINE 2 MG/1 ML INJ IV PRN (00:15)
[2019-08-01] MEDS: FUROSEMIDE 40 MG/4 ML INJ IV SCH ×2 (06:04→23:46)
[2019-08-01] MEDS: ISOSORBIDE DINITRATE 10 MG TAB PO SCH ×3 (06:04→23:45)
[2019-08-01] MEDS: hydrALAZINE 25 MG TAB PO SCH ×3 (06:05→21:58)
[2019-08-01] MEDS: HEPARIN 5,000 UNIT/1 ML VIAL SUB-Q SCH ×3 (06:06→21:59)
[2019-08-01] MEDS: INSULIN REGULAR, HUMAN 100 UNITS/1 ML SUB-Q SCH ×5 (08:10→22:07)
[2019-08-01 08:46] LABS: Hematocrit 38.8 % (30.3-42.9); Hemoglobin 12.9 gm/dl (10.1-14.3); Mean Corpuscular HGB Conc 33 % (30-34); Mean Corpuscular Volume 100 fl (79-97); Platelet Count 183 K/mm3 (140-440); Red Blood Count 3.87 M/mm3 (3.65-5.03); Red Cell Distribution Width 17.1 % (13.2-15.2)
[2019-08-01 09:01] LABS: Calcium 9.2 mg/dL (8.4-10.2)
[2019-08-01] MEDS: INSULIN NPH/REGULAR 70/30 INJ SUB-Q SCH ×2 (09:47→18:33)
[2019-08-01] MEDS: URSODIOL 250 MG TAB PO SCH ×4 (09:47→18:31)
--- NOTE | 2019-08-01 10:09 | Progress Note ---
Assessment and Plan 49 y/o, obese female smoker admitted with abdominal pain in need of cholecystectomy. 08/01/19 Amio drip off, rate is controlled. Will change diet to clears for now. Need to speak with surgery in regards to plan. Renal dysfunction and electrolyte imbalance this am my guess is from lack of forward flow after Milrione discontinued yesterday given changes in HR. Will ask cards if they are ok with restarting, defer to them. Stable now and will transition back to tele floor. 07/31/19 Spoke with cards, feel this is an atrial tachycardia that the ventricle is pacing to keep up with based on 12 lead done prior to transfer to ICU. Will give Amio bolus and start on amio drip for rate control. Cardiology will add other medications as they see fit. Def is not firing, may have higer threshold. Patient stable. Will keep in ICU today, if not further issues, transfer back out tomorrow. Remainder of note speaks to risk stratification for possible cholecystectomy. No new recommendations for today. Same recs as below regarding surgical risk. Patient will follow up in our office for full PFT including lung volumes and dlco 1. Limited history to work with. Patient has not been hospitalized for mandy thing. She is currently not in any kind of respiratory distress or being treated for the former. We did discuss the importance of smoking cessation. With lack of objective data, difficult to comment, especially in regards to COPD. The patient's ARISCAT score is 15 which is low risk of in-hospital post-op pulmonary complications. If the benefits outweigh the risk, then should proceed with surgery. Patient will need to follow up with us in our office for official screening for COPD and THANG. Concern for central sleep apnea given CAD. Post op would have PPV ready incase patient remains extremely groggy from anesthesia as she could be at risk for hypercapnea. Will continue to follow along with you. Thank you for this consult. Subjective Date of service: 08/01/19 Interval history: No acute events. HR is controlled now. Off drip and started on PO. Now having nausea with eating. Will change diet. Objective Vital Signs - 12hr 07/31/19 08/01/19 08/01/19 23:02 03:23 06:04 Temperature 98.5 F 97.7 F Pulse Rate 81 Blood Pressure 176/102 Constitutional: no acute distress, alert, other (obese) Eyes: non-icteric ENT: oropharynx moist Neck: supple, no JVD Effort: normal Ascultation: Bilateral: clear, diminished breath sounds Percussion: Bilateral: not dull Tactile fremitus: Bilateral: normal Cardiovascular: regular rate and rhythm Extremities: no edema, pink and warm, pulses normal CBC and BMP: 08/01/19 08:24 08/01/19 08:24 ABG, PT/INR, D-dimer: PT/INR, D-dimer PT 15.3 Sec. (12.2-14.9) H 07/29/19 06:43 INR 1.22 (0.87-1.13) H 07/29/19 06:43 Abnormal lab findings: Abnormal Labs 07/27/19 07/27/19 07/27/19 21:36 21:36 21:36 WBC 11.4 H RBC MCV 100 H MCH 33 H RDW 16.4 H Lymph % (Auto) [place] % (Auto) [place] # Seg Neutrophils % Seg Neutrophils # 7.9 H PT 15.6 H INR 1.25 H Sodium Chloride Carbon Dioxide 21 L BUN 38 H Creatinine 1.7 H Glucose 189 H POC Glucose NT-Pro-B Natriuret Pep 2468 H Albumin 3.8 L 07/28/19 07/29/19 07/29/19 16:02 06:43 06:43 WBC RBC 3.45 L MCV 102 H MCH 33 H RDW 16.3 H Lymph % (Auto) 11.3 L [place] % (Auto) 8.6 H [place] # 0.9 H Seg Neutrophils % 77.4 H Seg Neutrophils # 7.9 H PT 15.3 H INR 1.22 H Sodium Chloride Carbon Dioxide BUN Creatinine Glucose POC Glucose 315 H NT-Pro-B Natriuret Pep Albumin 07/29/19 07/29/19 07/29/19 06:43 11:35 17:02 WBC RBC MCV MCH RDW Lymph % (Auto) [place] % (Auto) [place] # Seg Neutrophils % Seg Neutrophils # PT INR Sodium 134 L Chloride Carbon Dioxide BUN 40 H Creatinine 1.4 H Glucose 193 H POC Glucose 211 H 252 H NT-Pro-B Natriuret Pep Albumin 07/29/19 07/30/19 07/30/19 21:52 07:56 08:49 WBC RBC MCV MCH RDW Lymph % (Auto) [place] % (Auto) [place] # Seg Neutrophils % Seg Neutrophils # PT INR Sodium 136 L Chloride Carbon Dioxide 21 L BUN 35 H Creatinine Glucose 243 H POC Glucose 225 H 233 H NT-Pro-B Natriuret Pep Albumin 07/30/19 07/30/19 07/30/19 11:46 16:04 21:00 WBC RBC MCV MCH RDW Lymph % (Auto) [place] % (Auto) [place] # Seg Neutrophils % Seg Neutrophils # PT INR Sodium Chloride Carbon Dioxide BUN Creatinine Glucose POC Glucose 270 H 275 H 297 H NT-Pro-B Natriuret Pep Albumin 07/31/19 07/31/19 07/31/19 06:57 07:55 07:55 WBC RBC 3.60 L MCV 100 H MCH 33 H RDW 16.5 H Lymph % (Auto) [place] % (Auto) [place] # Seg Neutrophils % Seg Neutrophils # PT INR Sodium Chloride Carbon Dioxide BUN 29 H Creatinine Glucose 240 H POC Glucose 274 H NT-Pro-B Natriuret Pep Albumin 07/31/19 07/31/19 07/31/19 12:55 16:33 21:15 WBC RBC MCV MCH RDW Lymph % (Auto) [place] % (Auto) [place] # Seg Neutrophils % Seg Neutrophils # PT INR Sodium Chloride Carbon Dioxide BUN Creatinine Glucose POC Glucose 334 H 386 H 260 H NT-Pro-B Natriuret Pep Albumin 08/01/19 08/01/19 08:24 08:24 WBC 12.3 H RBC MCV 100 H MCH 33 H RDW 17.1 H Lymph % (Auto) [place] % (Auto) [place] # Seg Neutrophils % Seg Neutrophils # PT INR Sodium 133 L Chloride 97.8 L Carbon Dioxide 19 L BUN 35 H Creatinine 1.6 H Glucose 213 H POC Glucose NT-Pro-B Natriuret Pep Albumin
[2019-08-01] MEDS: ONDANSETRON 4 MG/2 ML INJ IV PRN (10:20)
[2019-08-01] MEDS: NICOTINE 21 MG/24 HR PATCH TD SCH (10:21)
[2019-08-01] MEDS: SPIRONOLACTONE 25 MG TAB PO SCH (10:22)
[2019-08-01] MEDS: AMIODARONE 200 MG TAB PO SCH ×2 (10:30→21:57)
--- NOTE | 2019-08-01 10:32 | Progress Note ---
Assessment and Plan Chronic systolic heart failure Cholelithiasis Renal failure Dilated nonischemic cardiomyopathy left ventricular ejection fraction on echocardiogram was 10-15% at [facility] 2 weeks ago . Cardiac defibrillator in situ interrogation reveals NSVT and SVT before 07/24. No therapy required. Normal functioning device. Noncompliant with medical therapy Obese Hypertension Rapid atrial tachycardia with tracked ventricular pacing. treated with IV amiodarone, IV digoxin Recommendations: Sodium/fluid restriction. Monitor labs daily. Continue digoxin. We will transition to oral amiodarone for tachycardia suppression. Okay for transfer to telemetry. Subjective Date of service: 08/01/19 Interval history: Patient has no complaints. Stable sinus rhythm on telemetry. Objective Vital Signs Temp Pulse BP Pulse Ox 08/01/19 06:04 81 176/102 08/01/19 03:23 97.7 F 07/31/19 23:02 98.5 F 07/31/19 22:00 91 H 07/31/19 21:00 98 07/31/19 19:44 98.8 F 07/31/19 16:00 97.6 F 07/31/19 14:46 91 H 111/82 07/31/19 12:00 98.4 F - Physical Examination General: No Apparent Distress HEENT: Positive: PERRL Neck: Positive: trachea midline Cardiac: Positive: Reg Rate and Rhythm Lungs: Positive: Decreased Breath Sounds Neuro: Positive: Grossly Intact Extremities: Absent: edema - Labs and Meds CBC 08/01/19 Range/Units 08:24 WBC 12.3 H (4.5-11.0) K/mm3 RBC 3.87 (3.65-5.03) M/mm3 Hgb 12.9 (10.1-14.3) gm/dl Hct 38.8 (30.3-42.9) % Plt Count 183 (140-440) K/mm3 Comprehensive Metabolic Panel 08/01/19 Range/Units 08:24 Sodium 133 L (137-145) mmol/L Potassium 4.6 (3.6-5.0) mmol/L Chloride 97.8 L (98-107) mmol/L Carbon Dioxide 19 L (22-30) mmol/L BUN 35 H (7-17) mg/dL Creatinine 1.6 H (0.7-1.2) mg/dL Glucose 213 H (65-100) mg/dL Calcium 9.2 (8.4-10.2) mg/dL
[2019-08-01] MEDS: carvediloL 3.125 MG TAB PO SCH ×2 (10:35→21:58)
--- NOTE | 2019-08-01 10:56 | Progress Note ---
Assessment and Plan /New onset atrial fib, followed by atrial tachycardia. She was transferred to ICU. Later seen by cardiology, put on digoxin, Metoprolol and Amiodarone drip plan to change to amioderone po today, transfer out off icu today /Biliary colic, cholelithiasis Patient evaluated by Gen surgeon No urgent surgery planned. Discussed with Surgeon Surgery possibly as out patient when stable cardiac patrick /Acute on chronic systolic CHF was on Milrinone drip, completed on 07/31 cont to monitor with daily wt, ins/os, salt and fluid restriction /Acute resp failure due to CHF exacerbation - resolved cont Supplemental Oxygen, diuresis /Nausea and vomiting On IV Zofran as needed /JAZZY, vasomotor nephropathy - cont to monitor, if worsen will consult nephrology /Diabetes mellitus We will monitor Accu-Cheks and continue routine home medications. /Hypertension Blood pressure stable will monitor vital signs closely /DVT prophylaxis Patient placed on subcutaneous heparin. Full code status Brief History 39-year-old female with known history of morbid obesity, COPD, diabetes mellitus, GERD, hypertension and history of defibrillator placement presented to the emergency room complaining of abdominal pain and associated nausea and vomiting. Abdominal pain is said to be more in the right upper abdomen and the epigastric region. There was no no relieving or exacerbating factor. Upon arrival in the emergency room and during evaluation she was found to be hypoxic with an O2 saturation of about 89%. Work-up in the emergency room including CT of the abdomen revealed gallstones without cholecystitis. General surgeon, Dr. Vasquez was consulted and evaluated the patient. She was diagnosed with CHF exacerbation, started on Milrinone drip. then she converted to atrial fib required rapid response and transferred to ICU with amioderone drip. Hospitalist Physical Gen: Not in acute distress, lying in bed, morbidly obese HEENT: Normocephalic, atraumatic Neck: supple, no JVD Heart: S1 and S2 reg, no murmurs, rubs or gallop Lungs: Bilateral basal crackles, Abd: soft, tender RUQ, non distended, normal BS, Ext: No edema, no clubbing, no cyanosis Neuro: Awake, alert, oriented X 3, no focal neurological signs Subjective Date of service: 08/01/19 Interval history: patient seen and examined On amioderone drip Denies any chest pain Objective - Constitutional Vitals: Vital Signs - 12hr 07/31/19 08/01/19 08/01/19 23:02 03:23 06:04 Temperature 98.5 F 97.7 F Pulse Rate 81 Blood Pressure 176/102 08/01/19 08/01/19 10:22 10:45 Temperature 97.5 F L Pulse Rate 80 Blood Pressure 111/79 - Labs CBC & Chem 7: 08/01/19 08:24 08/01/19 08:24 Labs: Abnormal lab results 07/31/19 07/31/19 07/31/19 Range/Units 12:55 16:33 21:15 WBC (4.5-11.0) K/mm3 MCV (79-97) fl MCH (28-32) pg RDW (13.2-15.2) % Sodium (137-145) mmol/L Chloride (98-107) mmol/L Carbon Dioxide (22-30) mmol/L BUN (7-17) mg/dL Creatinine (0.7-1.2) mg/dL Glucose (65-100) mg/dL POC Glucose 334 H 386 H 260 H (70-105) 08/01/19 08/01/19 08/01/19 Range/Units 08:24 08:24 09:51 WBC 12.3 H (4.5-11.0) K/mm3 MCV 100 H (79-97) fl MCH 33 H (28-32) pg RDW 17.1 H (13.2-15.2) % Sodium 133 L (137-145) mmol/L Chloride 97.8 L (98-107) mmol/L Carbon Dioxide 19 L (22-30) mmol/L BUN 35 H (7-17) mg/dL Creatinine 1.6 H (0.7-1.2) mg/dL Glucose 213 H (65-100) mg/dL POC Glucose 240 H (70-105)
[2019-08-01] MEDS: DIGOXIN 0.125 MG TAB PO SCH ×2 (13:05→18:18)
--- NOTE | 2019-08-01 22:23 | Progress Note ---
Assessment and Plan Chronic systolic heart failure Cholelithiasis Renal failure Dilated nonischemic cardiomyopathy left ventricular ejection fraction on echocardiogram was 10-15% at [facility] 2 weeks ago . Cardiac defibrillator in situ interrogation reveals NSVT and SVT before 07/24. No therapy required. Normal functioning device. Noncompliant with medical therapy Obese Hypertension Rapid atrial tachycardia with tracked ventricular pacing. treated with IV amiodarone, IV digoxin Recommendations: Sodium/fluid restriction. Monitor labs daily. Continue digoxin. Patient changed to oral amiodarone for tachycardia suppression. Subjective Date of service: 08/02/19 Interval history: No acute events. Resting comfortably. No chest pain or SOB. Objective Vital Signs Temp Pulse Pulse Resp BP Pulse Ox 08/01/19 20:40 98.3 F 82 18 107/73 94 08/01/19 15:11 108/76 97 08/01/19 15:00 82 22 108/76 98 08/01/19 14:51 40 L 21 107/58 98 08/01/19 14:41 83 19 107/58 100 08/01/19 14:30 105 H 19 107/58 08/01/19 14:21 64 21 109/61 98 08/01/19 14:11 82 19 109/61 98 08/01/19 14:00 89 26 H 109/61 96 08/01/19 13:51 81 18 110/86 92 08/01/19 13:41 80 18 101/58 92 08/01/19 13:31 79 18 101/58 91 08/01/19 13:21 79 16 110/86 92 08/01/19 13:11 80 18 110/86 93 08/01/19 13:05 86 110/86 08/01/19 13:01 81 15 110/86 94 08/01/19 12:51 108/78 94 08/01/19 12:41 108/78 90 08/01/19 12:30 108/78 95 08/01/19 12:21 109/73 97 08/01/19 12:11 109/73 96 08/01/19 12:00 109/73 95 08/01/19 11:51 107/78 96 08/01/19 11:41 106/79 96 08/01/19 11:30 106/79 94 08/01/19 11:21 107/78 97 08/01/19 11:11 107/78 97 08/01/19 11:00 81 23 107/78 97 08/01/19 10:50 80 24 116/85 99 08/01/19 10:45 97.5 F L 08/01/19 10:41 81 13 116/85 99 08/01/19 10:30 82 20 116/85 98 08/01/19 10:22 80 111/79 08/01/19 10:21 81 16 111/79 98 08/01/19 10:11 111/79 97 08/01/19 10:00 80 20 111/79 97 08/01/19 09:51 81 22 112/66 98 08/01/19 09:41 112/66 98 08/01/19 09:30 112/66 96 08/01/19 09:21 110/69 94 08/01/19 09:11 110/69 96 08/01/19 09:00 110/69 95 08/01/19 08:51 111/69 95 08/01/19 08:41 111/69 99 08/01/19 08:30 78 20 111/69 94 08/01/19 08:21 77 17 114/69 96 08/01/19 08:11 79 22 114/69 98 08/01/19 08:00 78 78 16 114/69 97 08/01/19 07:51 81 19 115/89 99 08/01/19 07:41 115/89 96 08/01/19 07:31 115/89 98 08/01/19 07:21 115/89 98 08/01/19 07:11 115/89 96 08/01/19 07:00 82 18 115/89 98 08/01/19 06:51 78 18 127/87 98 08/01/19 06:41 85 19 127/87 97 08/01/19 06:30 79 18 127/87 08/01/19 06:21 84 19 129/100 95 08/01/19 06:11 85 22 129/100 90 08/01/19 06:04 81 176/102 08/01/19 06:01 85 17 176/102 87 08/01/19 05:51 79 17 116/86 93 08/01/19 05:41 77 17 116/86 93 08/01/19 05:31 79 18 129/100 92 08/01/19 05:21 79 18 105/77 95 08/01/19 03:23 97.7 F 07/31/19 23:02 98.5 F - Physical Examination General: No Apparent Distress HEENT: Positive: PERRL Neck: Positive: trachea midline Neuro: Positive: Grossly Intact Extremities: Absent: edema - Labs and Meds CBC 08/01/19 Range/Units 08:24 WBC 12.3 H (4.5-11.0) K/mm3 RBC 3.87 (3.65-5.03) M/mm3 Hgb 12.9 (10.1-14.3) gm/dl Hct 38.8 (30.3-42.9) % Plt Count 183 (140-440) K/mm3 Comprehensive Metabolic Panel 08/01/19 Range/Units 08:24 Sodium 133 L (137-145) mmol/L Potassium 4.6 (3.6-5.0) mmol/L Chloride 97.8 L (98-107) mmol/L Carbon Dioxide 19 L (22-30) mmol/L BUN 35 H (7-17) mg/dL Creatinine 1.6 H (0.7-1.2) mg/dL Glucose 213 H (65-100) mg/dL Calcium 9.2 (8.4-10.2) mg/dL
[2019-08-02] MEDS: ISOSORBIDE DINITRATE 10 MG TAB PO SCH ×3 (04:56→14:56)
[2019-08-02] MEDS: hydrALAZINE 25 MG TAB PO SCH ×2 (05:32→14:48)
[2019-08-02] MEDS: HEPARIN 5,000 UNIT/1 ML VIAL SUB-Q SCH ×2 (05:32→14:56)
[2019-08-02] MEDS: URSODIOL 250 MG TAB PO SCH ×2 (08:40→12:26)
[2019-08-02] MEDS: INSULIN NPH/REGULAR 70/30 INJ SUB-Q SCH (08:40)
[2019-08-02] MEDS: INSULIN REGULAR, HUMAN 100 UNITS/1 ML SUB-Q SCH ×2 (08:45→12:25)
[2019-08-02] MEDS: NICOTINE 21 MG/24 HR PATCH TD SCH (10:47)
[2019-08-02] MEDS: SPIRONOLACTONE 25 MG TAB PO SCH (10:48)
[2019-08-02] MEDS: AMIODARONE 200 MG TAB PO SCH ×2 (10:51→10:56)
[2019-08-02 10:52] VITALS: BP 119/74
[2019-08-02] MEDS: carvediloL 3.125 MG TAB PO SCH ×2 (10:52→10:56)
--- NOTE | 2019-08-02 12:26 | Progress Note ---
Subjective Date of service: 08/02/19 Objective - Constitutional Vitals: Vital Signs - 12hr 08/02/19 08/02/19 05:01 10:48 Temperature 98.0 F Pulse Rate 78 86 Respiratory 18 Rate Blood Pressure 118/77 119/74 O2 Sat by Pulse 86 Oximetry - Labs CBC & Chem 7: 08/01/19 08:24 08/01/19 08:24 Labs: Abnormal lab results 08/01/19 08/01/19 08/02/19 Range/Units 18:39 21:04 08:32 POC Glucose 260 H 236 H 196 H (70-105) 08/02/19 Range/Units 12:09 POC Glucose 248 H (70-105)
--- NOTE | 2019-08-02 12:34 | Discharge Summary ---
Providers - Providers Date of Admission: 07/28/19 02:49 Date of discharge: 08/02/19 Attending physician: CHAVEZ JAVED 07/28/19 02:47 Consult to Physician [CONS] Urgent Comment: Consulting Provider: KENJI TOWNSEND Physician Instructions: Reason For Exam: chf, hypoxia 07/28/19 02:48 Consult to Physician [CONS] Urgent Comment: Consulting Provider: JORDAN VASQUEZ Physician Instructions: Reason For Exam: bilary colic 07/28/19 04:14 Consult to Dietitian/Nutrition [CONS] Routine Physician Instructions: Reason For Exam: Reason for Consult: Diet education 07/28/19 10:30 Consult to Physician [CONS] Routine Comment: Consulting Provider: ANTOINETTE NAPIER Physician Instructions: Reason For Exam: chf 07/28/19 10:31 Consult to Physician [CONS] Routine Comment: Consulting Provider: VERONICA ABDI Physician Instructions: Reason For Exam: copd Primary care physician: TAMERA BARRON Hospitalization Condition: Stable Hospital course: 39-year-old female with known history of morbid obesity, COPD, diabetes mellitus, GERD, hypertension and history of defibrillator placement presented to the emergency room complaining of abdominal pain and associated nausea and vomiting. Abdominal pain is said to be more in the right upper abdomen and the epigastric region. There was no no relieving or exacerbating factor. Upon arrival in the emergency room and during evaluation she was found to be hypoxic with an O2 saturation of about 89%. Work-up in the emergency room including CT of the abdomen revealed gallstones without cholecystitis. General surgeon, Dr. Vasquez was consulted and evaluated the patient. She was diagnosed with CHF exacerbation, started on Milrinone drip. then she converted to atrial fib required rapid response and transferred to ICU with amioderone drip. Discharge diagnosis and Mx: /New onset atrial fib, followed by atrial tachycardia. She was transferred to ICU. Later seen by cardiology, put on digoxin, Metoprolol and Amiodarone drip Changed to amioderone po, will f/u outpt /Biliary colic, cholelithiasis Patient evaluated by Gen surgeon No urgent surgery planned. Discussed with Surgeon Surgery possibly as out patient when stable cardiac patrick /Acute on chronic systolic CHF was on Milrinone drip, completed on 07/31 cont to monitor with daily wt, ins/os, salt and fluid restriction /Acute resp failure due to CHF exacerbation - resolved cont Supplemental Oxygen, diuresis /Nausea and vomiting On IV Zofran as needed /JAZZY, vasomotor nephropathy - cont to monitor, if worsen will consult nephrology /Diabetes mellitus We will monitor Accu-Cheks and continue routine home medications /Hypertension Blood pressure stable will monitor vital signs closely /DVT prophylaxis Patient placed on subcutaneous heparin. Full code status Hospitalist Physical Gen: Not in acute distress, lying in bed, morbidly obese HEENT: Normocephalic, atraumatic Neck: supple, no JVD Heart: S1 and S2 reg, no murmurs, rubs or gallop Lungs: Bilateral basal crackles, Abd: soft, tender RUQ, non distended, normal BS, Ext: No edema, no clubbing, no cyanosis Neuro: Awake, alert, oriented X 3, no focal neurological signs Disposition: DC-30 STILL A PATIENT Time spent for discharge: 34 minutes Core Measure Documentation - Palliative Care Palliative Care/ Comfort Measures: Not Applicable - Core Measures Any of the following diagnoses?: none Exam - Constitutional Vitals: Temp Pulse Resp BP Pulse Ox 98.0 F 86 18 119/74 86 08/02/19 05:01 08/02/19 10:48 08/02/19 05:01 08/02/19 10:48 08/02/19 05:01 Plan Activity: advance as tolerated Weight Bearing Status: Weight Bear as Tolerated Diet: low fat, low salt, diabetic Follow up with: TAMERA BARRON MD [Primary Care Provider] - 7 Days ANDREI LLAMAS MD [Staff Physician] - 7 Days Prescriptions: Spironolactone [Aldactone] 12.5 mg PO QDAY #30 tablet hydrALAZINE [Apresoline TAB] 25 mg PO Q8HR #90 tablet Amiodarone [Cordarone 200 MG TAB] 200 mg PO BID #30 tablet carvediloL [Coreg] 3.125 mg PO BID #60 tablet Isosorbide Dinitrate [Isordil Titradose] 10 mg PO Q8HR #90 tablet Digoxin [Lanoxin] 0.125 mg PO DAILY@1700 #30 tablet Ursodiol [Kaela] 500 mg PO TIDDIAB #60 tablet
[2019-08-02 13:15] LABS: Hematocrit 38.3 % (30.3-42.9); Hemoglobin 12.7 gm/dl (10.1-14.3); Mean Corpuscular HGB Conc 33 % (30-34); Mean Corpuscular Volume 101 fl (79-97); Platelet Count 166 K/mm3 (140-440); Red Blood Count 3.81 M/mm3 (3.65-5.03); Red Cell Distribution Width 16.8 % (13.2-15.2)
[2019-08-02 13:35] LABS: Calcium 8.8 mg/dL (8.4-10.2)
[2019-08-02] MEDS ORDERED: INSULIN NPH/REGULAR 70/30 INJ SUB-Q SCH (17:00)
== END 2019-08-02 15:35 | disposition home or self-care (01) | DRG 444 ==
LOC: ED 21:04 → 4A 07-28 02:49 → CC1 07-31 07:41 → 4A 08-01 15:45
PROVIDERS: ADMIT Internal Medicine Geriatric Medicine; ATTEND Internal Medicine
DX: K80.70 Calculus of gallbladder and bile duct without cholecystitis without obstruction (principal); N17.0 Acute kidney failure with tubular necrosis; I50.23 Acute on chronic systolic (congestive) heart failure; J96.00 Acute respiratory failure, unspecified whether with hypoxia or hypercapnia; Z68.42 Body mass index [BMI] 45.0-49.9, adult; I42.0 Dilated cardiomyopathy; E11.8 Type 2 diabetes mellitus with unspecified complications; E66.01 Morbid (severe) obesity due to excess calories; J44.9 Chronic obstructive pulmonary disease, unspecified; K21.9 Gastro-esophageal reflux disease without esophagitis; I11.0 Hypertensive heart disease with heart failure; I48.91 Unspecified atrial fibrillation; Z91.14 Patient's other noncompliance with medication regimen; Z95.810 Presence of automatic (implantable) cardiac defibrillator; Z82.49 Family history of ischemic heart disease and other diseases of the circulatory system; Z83.3 Family history of diabetes mellitus; Z79.82 Long term (current) use of aspirin; Z79.899 Other long term (current) drug therapy
CPT/HCPCS: 36415; 71046; 74176; 76705; 80048; 80053; 82962; 83690; 83735; 83880; 84100; 84484; 85025; 85027; 85610; 85730; 93005; 93010; G0378; J0282; J1160; J1170; J1644; J1815; J1940; J2260; J2270; J2405; J7060

== ENCOUNTER 2019-09-29 02:32 | Emergency (ER) | payer MEDICARE ==
[2019-09-29] MEDS ORDERED: FUROSEMIDE 40 MG/4 ML INJ IV ONE ×2 (03:04→03:05)
[2019-09-29] MEDS ORDERED: ALBUTEROL 2.5 MG/3 ML NEBU IH ONE (03:04)
[2019-09-29] MEDS ORDERED: IPRATROPIUM 0.02% NEBU 2.5 ML IH ONE (03:04)
[2019-09-29 03:45] LABS: Basophils % (Auto) 0.4 % (0.0-1.8); Eosinophils % (Auto) 0.5 % (0.0-4.3); Hematocrit 41.6 % (30.3-42.9); Hemoglobin 13.5 gm/dl (10.1-14.3); Lymphocytes # (Auto) 1.7 K/mm3 (1.2-5.4); Lymphocytes % (Auto) 15.8 % (13.4-35.0); Mean Corpuscular HGB Conc 32 % (30-34); Mean Corpuscular Volume 93 fl (79-97); Monocytes # (Auto) 1.1 K/mm3 (0.0-0.8); Monocytes % (Auto) 10.7 % (0.0-7.3); Platelet Count 242 K/mm3 (140-440); Red Blood Count 4.48 M/mm3 (3.65-5.03); Red Cell Distribution Width 17.7 % (13.2-15.2)
--- NOTE | 2019-09-29 03:50 | Cat Scan Report ---
CT HEAD WITHOUT CONTRAST INDICATION: confusion. TECHNIQUE: All CT scans at this location are performed using CT dose reduction for ALARA by means of automated e xposure control. COMPARISON: None available. FINDINGS: HEMORRHAGE: None. EXTRA-AXIAL SPACES: Normal in size and morphology for the patient's age. VENTRICULAR SYSTEM: Normal in size and morphology for the patient's age. BRAIN PARENCHYMA: No acute findings. MIDLINE SHIFT OR HERNIATION: None. ORBITS: Normal as visualized. SOFT TISSUES OF HEAD: Normal. CALVARIUM: Normal. VISUALIZED PARANASAL SINUSES AND MASTOID AIR CELLS: Clear. ADDITIONAL FINDINGS: None. IMPRESSION: 1. No acute intracranial abnormality. Signer Name: Olegario Reza MD Signed: 09/29/2019 3:45 AM Workstation Name: [id number]
[2019-09-29 03:54] LABS: Calcium 9.6 mg/dL (8.4-10.2)
[2019-09-29 05:41] LABS: Bilirubin,Urine NEG (Negative); Blood,Urine SM (Negative); Color,Urine Straw (Yellow); Mucus,Urine FEW /HPF; Protein,Urine <15 mg/dL mg/dL (Negative); Urobilinogen,Urine < 2.0 mg/dL (<2.0)
--- NOTE | 2019-09-29 05:41 | Emergency Department Report ---
<NIRAV CLEMENTS - Last Filed: 09/29/19 05:35> ED Shortness of Breath HPI - General Chief Complaint: Psych Stated Complaint: MH EVAL/SOB/HEARING VOICES Time Seen by Provider: 09/29/19 03:01 Source: patient Mode of arrival: Ambulatory Limitations: No Limitations - History of Present Illness Initial Comments: CC: "I am concerned about her mental." HPI: Mrs. Ly is a 49 yo female with hx of COPD, DM, GERD, HTN, CHF w/ AICD, atrial fibrillation who presents shortness of breath, depression and hallucinations. Patient tells me that she has been depressed with shortness of breath. Daughter explains that she has hallucinations of relatives being in the room when they are not really present. Mrs. Ly denies hallucinations. Daughter does admit to stress. Her grandfather has several health issues. Mrs. Ly has been admitted here at [facility] and [facility] for breathing trouble. Mrs. Ly also explains that lately she has been unable to lay flat. Cardiology Dr. Webb previously followed by Dr. Charisse HARRINGTON Complaint: shortness of breath -: Gradual Severity: moderate Consistency: constant Improves With: nothing Worsens With: lying flat Known History Of: COPD, congestive heart failure Associated Symptoms: other (hallucinations according to daughter) - Related Data Home Medications Medication Instructions Recorded Confirmed Last Taken Aspirin [Aspirin BABY CHEW TAB] 1 tab PO DAILY 08/24/17 09/29/19 Unknown Simvastatin [Zocor] 10 mg PO QHS 08/24/17 09/29/19 08/23/17 21:00 10 MG Torsemide [Demadex] 20 mg PO DAILY 08/24/17 09/29/19 08/23/17 21:00 20 MG raNITIdine HCl [Zantac 300 MG TAB] 300 mg PO DAILY 08/24/17 09/29/19 08/23/17 21:00 300 MG Midodrine 10 mg PO Q8H 09/29/19 09/29/19 Unknown Spironolactone [Aldactone] 25 mg PO QDAY 09/29/19 09/29/19 Unknown Victoza 2-Yuriy 18 mg SUB-Q DAILY 09/29/19 09/29/19 Unknown hydrALAZINE [Apresoline TAB] 25 mg PO Q8HR PRN 09/29/19 09/29/19 Unknown traZODone 50 mg PO HS 09/29/19 09/29/19 Unknown Previous Rx's Medication Instructions Recorded Last Taken Type Insulin NPH/Regular [NovoLIN 70/30] 20 unit SUB-Q BIDDIAB units 08/02/19 Unknown Rx carvediloL [Coreg] 3.125 mg PO BID #60 tablet 08/02/19 Unknown Rx Allergies Allergy/AdvReac Type Severity Reaction Status Date / Time No Known Allergies Allergy Verified 05/14/15 02:29 ED Review of Systems Comment: All other systems reviewed and negative Constitutional: malaise Respiratory: shortness of breath. denies: cough Cardiovascular: denies: chest pain Gastrointestinal: denies: abdominal pain, nausea, vomiting Psychiatric: depression, auditory hallucinations, visual hallucinations ED Past Medical Hx - Past Medical History Previous Medical History?: Yes Hx Hypertension: Yes Hx Congestive Heart Failure: Yes Hx Diabetes: Yes Hx GERD: Yes Hx Asthma: Yes Hx COPD: Yes Additional medical history: DEFRIBILLATOR. - Surgical History Past Surgical History?: Yes Hx Internal Defibrillator: Yes Additional Surgical History: DEFRIBILLATOR - Family History Family history: hypertension - Social History Smoking Status: Former Smoker Substance Use Type: None - Medications Home Medications: Home Medications Medication Instructions Recorded Confirmed Last Taken Type Aspirin [Aspirin BABY CHEW TAB] 1 tab PO DAILY 08/24/17 09/29/19 Unknown History Simvastatin [Zocor] 10 mg PO QHS 08/24/17 09/29/19 08/23/17 21:00 History 10 MG Torsemide [Demadex] 20 mg PO DAILY 08/24/17 09/29/19 08/23/17 21:00 History 20 MG raNITIdine HCl [Zantac 300 MG TAB] 300 mg PO DAILY 08/24/17 09/29/19 08/23/17 21:00 History 300 MG Insulin NPH/Regular [NovoLIN 70/30] 20 unit SUB-Q BIDDIAB units 08/02/19 09/29/19 Unknown Rx carvediloL [Coreg] 3.125 mg PO BID #60 tablet 08/02/19 09/29/19 Unknown Rx Midodrine 10 mg PO Q8H 09/29/19 09/29/19 Unknown History Spironolactone [Aldactone] 25 mg PO QDAY 09/29/19 09/29/19 Unknown History Victoza 2-Yuriy 18 mg SUB-Q DAILY 09/29/19 09/29/19 Unknown History hydrALAZINE [Apresoline TAB] 25 mg PO Q8HR PRN 09/29/19 09/29/19 Unknown History traZODone 50 mg PO HS 09/29/19 09/29/19 Unknown History ED Physical Exam - General Limitations: No Limitations General appearance: alert, in no apparent distress - Head Head exam: Present: atraumatic, normocephalic - Eye Eye exam: Present: normal appearance - ENT ENT exam: Present: mucous membranes moist - Neck Neck exam: Present: normal inspection, full ROM - Respiratory Respiratory exam: Present: normal lung sounds bilaterally. Absent: respiratory distress, wheezes, rales, rhonchi - Cardiovascular Cardiovascular Exam: Present: regular rate, normal rhythm, normal heart sounds. Absent: systolic murmur, diastolic murmur, rubs, gallop - GI/Abdominal GI/Abdominal exam: Present: soft, normal bowel sounds. Absent: distended, tenderness, guarding, rebound - Extremities Exam Extremities exam: Present: normal inspection - Back Exam Back exam: Present: normal inspection - Neurological Exam Neurological exam: Present: alert, oriented X3, CN II-XII intact, normal gait. Absent: motor sensory deficit - Psychiatric Psychiatric exam: Present: depressed, flat affect - Skin Skin exam: Present: warm, dry, intact, normal color. Absent: rash ED Medical Decision Making - Lab Data Result diagrams: 09/29/19 03:01 09/29/19 03:01 Laboratory Results - last 24 hr 09/29/19 09/29/19 09/29/19 03:01 03:01 03:01 WBC RBC Hgb Hct MCV MCH MCHC RDW Plt Count Lymph % (Auto) [place] % (Auto) Eos % (Auto) Baso % (Auto) Lymph # [place] # Eos # Baso # Seg Neutrophils % Seg Neutrophils # Sodium 132 L Potassium 4.4 Chloride 92.0 L Carbon Dioxide 22 Anion Gap 22 BUN 39 H Creatinine 1.5 H Estimated GFR 45 BUN/Creatinine Ratio 26 Glucose 173 H Calcium 9.6 Troponin T NT-Pro-B Natriuret Pep Salicylates < 0.3 L Acetaminophen < 5.0 L Plasma/Serum Alcohol 09/29/19 09/29/19 09/29/19 03:01 03:01 03:12 WBC 10.6 RBC 4.48 Hgb 13.5 Hct 41.6 MCV 93 MCH 30 MCHC 32 RDW 17.7 H Plt Count 242 Lymph % (Auto) 15.8 [place] % (Auto) 10.7 H Eos % (Auto) 0.5 Baso % (Auto) 0.4 Lymph # 1.7 [place] # 1.1 H Eos # 0.0 Baso # 0.0 Seg Neutrophils % 72.6 H Seg Neutrophils # 7.7 Sodium Potassium Chloride Carbon Dioxide Anion Gap BUN Creatinine Estimated GFR BUN/Creatinine Ratio Glucose Calcium Troponin T < 0.010 NT-Pro-B Natriuret Pep 3667 H Salicylates Acetaminophen Plasma/Serum Alcohol < 0.01 - Radiology Data Radiology results: report reviewed, image reviewed ct head no acute findings per radiology impression I personally reviewed chest radiograph: 1 view AP portable significant cardiomegaly without effusion without infiltrate without significant pulmonary edema - Medical Decision Making 1. Shortness of breath as reported per mother and daughter: Clear breath sounds on exam. No significant pulmonary edema or lower extremity edema. From a respiratory standpoint patient is able to be discharged home. 2. "Hallucinations". Patient does not appear to be responding to internal stimuli. Daughter states that patient is asking for relatives are not present in the room. Patient does appear flat and depressed. She denies suicidal or homicidal ideation. However I do not detect psychosis or delirium. Awaiting UDS. Otherwise she is medically clear for psychiatric care. CBC chemistry within normal limits with exception of mild hyponatremia and elevated BNP. Awaiting psychiatric evaluation. ED Disposition Clinical Impression: Obesity, COPD (chronic obstructive pulmonary disease), CHF (congestive heart failure) Disposition: TO HOME OR SELFCARE Condition: Stable Instructions: Chronic Obstructive Pulmonary Disease (ED) Additional Instructions: Continue outpatient medications. Follow up with her primary care doctor or firewood cutter within the next 2 weeks for shortness of breath. Avoid a high salt diet. Follow up with outpatient mental health resources that were provided to the patient. Return to emergency room right away was new, worse or different symptoms, or symptoms not present on the initial emergency room evaluation. [facility] in the [place], [place] Address: [address] [place] [address] [place] [address] [facility] in [place], [place] Address: [address], [place] [address] Hours: Open 24 hours Referrals: ANTOINETTE NAPIER MD [Staff Physician] - 3-5 Days [facility] [Provider Group] - 3-5 Days [facility] [Outside] - 3-5 Days <SEROTGILBERTANDREI - Last Filed: 09/29/19 14:12> ED Review of Systems ROS: Stated complaint: MH EVAL/SOB/HEARING VOICES Other details as noted in HPI ED Course Vital Signs 09/29/19 09/29/19 09/29/19 02:37 03:35 03:45 Temperature 98.4 F Pulse Rate 107 H 90 104 H Respiratory 18 16 27 H Rate Blood Pressure 141/94 123/74 O2 Sat by Pulse 98 98 96 Oximetry 09/29/19 09/29/19 09/29/19 04:00 04:15 04:31 Temperature Pulse Rate 102 H 104 H 109 H Respiratory 16 17 26 H Rate Blood Pressure 122/76 122/76 122/76 O2 Sat by Pulse 95 97 97 Oximetry 09/29/19 09/29/19 09/29/19 04:45 05:04 05:18 Temperature Pulse Rate 110 H 115 H Respiratory 21 Rate Blood Pressure 122/76 122/76 O2 Sat by Pulse 95 93 Oximetry 09/29/19 09/29/19 09/29/19 05:31 05:45 06:01 Temperature Pulse Rate 101 H 103 H 100 H Respiratory 17 22 13 Rate Blood Pressure O2 Sat by Pulse 95 95 96 Oximetry 09/29/19 09/29/19 09/29/19 06:15 06:31 06:45 Temperature Pulse Rate 100 H 100 H 101 H Respiratory 17 21 21 Rate Blood Pressure O2 Sat by Pulse 94 95 96 Oximetry 09/29/19 09/29/19 09/29/19 07:01 07:15 07:31 Temperature Pulse Rate 110 H 100 H 103 H Respiratory 23 15 17 Rate Blood Pressure 126/93 O2 Sat by Pulse 94 98 95 Oximetry 09/29/19 09/29/19 09/29/19 07:45 08:00 08:15 Temperature Pulse Rate 103 H 104 H 103 H Respiratory 23 23 23 Rate Blood Pressure 126/93 130/95 130/95 O2 Sat by Pulse 93 94 98 Oximetry 09/29/19 09/29/19 09/29/19 08:31 08:45 09:01 Temperature Pulse Rate 113 H 109 H 124 H Respiratory 24 18 26 H Rate Blood Pressure 130/95 130/95 130/95 O2 Sat by Pulse 94 97 94 Oximetry 09/29/19 09/29/19 09/29/19 09:15 09:32 09:45 Temperature Pulse Rate 114 H 113 H 111 H Respiratory 26 H 22 18 Rate Blood Pressure 130/95 O2 Sat by Pulse 97 96 97 Oximetry 09/29/19 09/29/19 09/29/19 10:01 10:15 10:31 Temperature Pulse Rate 108 H 107 H 111 H Respiratory 25 H 23 23 Rate Blood Pressure O2 Sat by Pulse 94 93 93 Oximetry 09/29/19 09/29/19 10:45 11:01 Temperature Pulse Rate 110 H 108 H Respiratory 24 24 Rate Blood Pressure O2 Sat by Pulse 93 95 Oximetry - Reevaluation(s) Reevaluation #1: 09/29/19 14:08 Old medical records reviewed. Documentation from earlier on today reviewed. Mental health documentation reviewed. I went back to examine the patient. She is not endorsing any respiratory complaints. She denies DVT and pulmonary embolism risk factors. She reportedly saw her firewood cutter last week. She does not need refills on her medications. Lung sounds are clear to auscultation bilaterally. ED Medical Decision Making - Lab Data Result diagrams: 09/29/19 03:01 09/29/19 03:01 Critical care attestation.: If time is entered above; I have spent that time in minutes in the direct care of this critically ill patient, excluding procedure time. ED Disposition Is pt being admited?: No Does the pt Need Aspirin: No
--- NOTE | 2019-09-29 05:46 | XRay Report ---
CHEST 1 VIEW INDICATION: dyspnea. COMPARISON: 07/27/2019 FINDINGS: Support devices: Cardiac leads are unchanged. Heart: Enlargement of the cardiac silhouette is stable. Lungs/Pleura: There is pulmonary venous hypertension. No consolidation, effusion, or pneumothorax. IMPRESSION: 1. No acute findings. Signer Name: Olegario Reza MD Signed: 09/29/2019 5:42 AM Workstation Name: [id number]
[2019-09-29 05:50] LABS: Amphetamine Screen,Urine PRESUMPTIVE NEGATIVE; Benzodiazepines Screen,Urine PRESUMPTIVE NEGATIVE; Cannabinoid Screen,Urine PRESUMPTIVE NEGATIVE; Cocaine Screen,Urine PRESUMPTIVE NEGATIVE; Methadone Screen,Urine PRESUMPTIVE NEGATIVE; Opiate Screen,Urine PRESUMPTIVE NEGATIVE
[2019-09-29 11:12] VITALS: BP 130/95
== END 2019-09-29 14:43 | disposition home or self-care (01) ==
LOC: ED 02:32
DX: J44.9 Chronic obstructive pulmonary disease, unspecified (principal); E66.9 Obesity, unspecified; I11.0 Hypertensive heart disease with heart failure; I50.9 Heart failure, unspecified; E11.9 Type 2 diabetes mellitus without complications; K21.9 Gastro-esophageal reflux disease without esophagitis; Z98.890 Other specified postprocedural states; Z87.891 Personal history of nicotine dependence; Z95.810 Presence of automatic (implantable) cardiac defibrillator; Z79.899 Other long term (current) drug therapy; Z68.41 Body mass index [BMI] 40.0-44.9, adult
CPT/HCPCS: 36415; 70450; 71045; 80048; 80162; 80307; 81001; 83880; 84484; 85025; 93005; 93010; 94640; 96374; 99285; J1940; 80320; G0480